=== PATIENT | female | born 1975 | race Asian ===

== ENCOUNTER 2024-01-27 14:38 | Outpatient (AMB) | payer OTHER, SELFPAY ==
--- NOTE | 2024-01-27 14:48 | A.OFFVIS_ITS ---
Vital Signs 01/27/24 14:49 Height 5 ft 3 in Weight 145 lb 1.027 oz BMI 25.7 BP 142/64 H Blood Pressure Location Rt brachial Position Sitting Pulse 104 H Pulse Source Pulse Oximeter Pulse Oximetry (%) 100 Oxygen Delivery Method Room Air Intake Visit Reasons: Intake Note: New pt presents today for consult, referred by physiatry Dr Zamora Denies having pain. 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 Accompanied by: and child Allergies No Known Allergies Allergy (Verified 01/27/24 14:52) Medication List - Last Reconciled 01/27/24 by Norman Nazario MD amlodipine 5 mg PO BID atorvastatin 10 mg PO DAILY blood sugar diagnostic (FreeStyle Lite Strips) As directed blood-glucose meter (FreeStyle Lite Meter kit) As directed cholecalciferol (vitamin D3) (Vitamin D3) 50 mcg PO DAILY dulaglutide (Trulicity) mg subcut ferrous sulfate 325 mg PO DAILY glipizide ER 5 mg PO BID lancets (FreeStyle Lancets) As directed losartan 100 mg PO DAILY magnesium oxide 400 mg PO DAILY metformin 500 mg PO BID HPI Comments Details: This is a 48-year-old female who presents for evaluation of ankylosing spondylitis. Over the last 3 years patient has noticed that when she walks her back is bent to the right and forward. She states that she was having some left thigh pain. She states that she has mild morning stiffness of her back lasting about 15 minutes. She does not have to do any exercises or take any medications to loosen it up. She generally does not take any medications for pain. She was referred to physical therapy which helped with her thigh pain. Today she denies any pain. She denies any history suggestive of uveitis or IBD. She is scheduled for a colonoscopy later this year. It is a routine screening colonoscopy. She is unaware of any family history of an autoimmune rheumatic disease. [facility] Medical History Radiculopathy, thoracic region Radiculopathy, lumbar region Diabetes Hypertension Surgical History Hx of section Family History Mother Diabetes Father No problems noted. Social History Alcohol intake: never Patient Tobacco Use Status: Never used Tobacco Female Reproductive History Menstrual Total pregnancies: 5 Ab spontaneous: 3 Review of Systems Musc Details: Abnormal spine posture Reports abnormal gait, Denies arthralgias, Denies joint swelling and Reports stiffness Neuro Reports abnormal gait Physical Exam Vital Signs: Last Vital Signs Pulse 104 H 01/27/24 14:49 BP 142/64 H 01/27/24 14:49 Pulse Ox 100 01/27/24 14:49 Oxygen Delivery Method Room Air 01/27/24 14:49 BMI result Body Mass Index 25.7 Const General: cooperative, healthy appearing and comfortable Nutritional Appearance: overweight Orientation/consciousness: patient oriented x3 Limitations: no limitations HEENT Head: Yes normocephalic and Yes atraumatic Mouth: moist mucous membranes Resp Effort & Inspection: normal respiratory effort and able to speak in complete sentences Auscultation: clear to auscultation bilaterally Cardio Rate: regular rate Rhythm: regular rhythm Skin General skin exam: no rashes or lesions noted Neuro General: patient oriented x3 Extrem Other: No active synovitis Nailfold capillaroscopy shows few parallel hemorrhages and normal range of motion of hands, fingers, wrists, elbows, shoulders Normal range of motion of neck Malleolus on exam Yamilex test 10-11 cm Negative straight leg raise test bilaterally Negative Fabere test bilaterally Results Reviewed Results Reviewed: Thoracic spine x-ray 11/2023? Findings/impression:? Alignment is within normal limits.? No fracture.? Mild degenerative changes with facet arthritis and endplate spurring throughout the thoracic spine.? Multilevel flowing syndesmophytes throughout the thoracic spine raising the possibility of ankylosing spondylitis Thoracic spine x-ray 09/2023? Impression:? No acute findings.? 14 degree levoscoliosis with the apex at L3.? Unchanged compared to 03/2011.? There degenerative disc disease at the L5-S1 level Assessment & Plan Assessment & Plan (1) Scoliosis: Code(s): M41.9 - Scoliosis, unspecified Category: Medical Qualifiers: Scoliosis type: idiopathic Spinal region: thoracolumbar Idiopathic scoliosis type: other Qualified Code(s): M41.25 - Other idiopathic scoliosis, thoracolumbar region Plan: This is a 48-year-old female who presents for evaluation of ankylosing spondylitis. Patient has known scoliosis. Recent thoracic spine x-ray showed bridging syndesmophytes suggestive of ankylosing spondylitis. Will order comprehensive serology to screen for underlying autoimmune rheumatic disease. Check repeat spinal x-rays and will add bilateral SI joint x-rays to evaluate for sacroiliitis. Patient states that she will be going to [place] and will be back late March or April. Follow-up in about 3 months to go over her results Plan I spent 47 minutes reviewing patient's chart, evaluating patient, ordering diagnostic workup, counseling patient and documenting in the chart Orders: Orders Complete Blood Count Auto Diff Today M06.9 - Rheumatoid arthritis, unspecified C Reactive Protein Today M06.9 - Rheumatoid arthritis, unspecified Immunofixation Pnl, Serum Today M06.9 - Rheumatoid arthritis, unspecified Rheumatoid Factor Today M06.9 - Rheumatoid arthritis, unspecified Cyclic Citrullinated Peptide Today M06.9 - Rheumatoid arthritis, unspecified HLA B27 Today M45.9 - Ankylosing spondylitis of unspecified sites in spine LIZBETH Reflex Titer and Pattern Today M25.50 - Pain in unspecified joint XR sacroiliac joint min 3V Today M25.50 - Pain in unspecified joint XR thoracic spine 3V Today M25.50 - Pain in unspecified joint Comprehensive Met. Panel Today M06.9 - Rheumatoid arthritis, unspecified Erythrocyte Sedimentation Rate Today M06.9 - Rheumatoid arthritis, unspecified Hepatitis A,B,C Profile Today Z11.59 - Encounter for screening for other viral diseases Protein Electrophoresis, Serum Today M06.9 - Rheumatoid arthritis, unspecified XR lumbar spine 4V min Today M25.50 - Pain in unspecified joint Coding Level of Care Code New Pt Level 4 (67282) Diagnoses Other idiopathic scoliosis, thoracolumbar region M41.25 Scoliosis type: idiopathic Spinal region: thoracolumbar Idiopathic scoliosis type: other
[2024-01-27 14:49] VITALS: BP 142/64; PULSE 104; O2SAT 100; BMI 25.7
== END 2024-01-27 15:21 | disposition home or self-care (01) ==
PROVIDERS: PCP Internal Medicine; Visit Provider Student in an Organized Health Care Education/Training Program
DX: M41.25 Other idiopathic scoliosis, thoracolumbar region (principal)
CPT/HCPCS: 99204

== ENCOUNTER → 2024-01-27 14:38 | Outpatient (BNVA) | payer OTHER, SELFPAY | PROVIDERS: PCP Internal Medicine; Visit Provider Student in an Organized Health Care Education/Training Program | DX: M41.25 Other idiopathic scoliosis, thoracolumbar region (principal) | CPT/HCPCS: 99202 ==

== ENCOUNTER → 2024-05-27 09:50 | Outpatient (BNVA) | payer OTHER, SELFPAY | PROVIDERS: PCP Internal Medicine; Visit Provider Student in an Organized Health Care Education/Training Program ==

== ENCOUNTER 2024-06-22 08:14 | Outpatient (AMB) | payer OTHER, SELFPAY ==
--- NOTE | 2024-06-22 08:16 | MHC.OFFVIS ---
Vital Signs 06/22/24 08:20 Height 5 ft 3 in Weight 148 lb 12.992 oz BMI 26.4 BP 124/74 Blood Pressure Location Rt brachial Position Sitting Pulse 78 Pulse Source Pulse Oximeter Pulse Oximetry (%) 95 Oxygen Delivery Method Room Air Intake Visit Reasons: as Intake Note: Patient presents for . Allergies No Known Allergies Allergy (Verified 06/22/24 08:19) Medication List - Last Reconciled 06/22/24 by Norman Nazario MD amlodipine 5 mg PO BID atorvastatin 10 mg PO DAILY blood sugar diagnostic (FreeStyle Lite Strips) As directed blood-glucose meter (FreeStyle Lite Meter kit) As directed cholecalciferol (vitamin D3) (Vitamin D3) 50 mcg PO DAILY dulaglutide (Trulicity) mg subcut ferrous sulfate 325 mg PO DAILY glipizide ER 5 mg PO BID lancets (FreeStyle Lancets) As directed losartan 100 mg PO DAILY magnesium oxide 400 mg PO DAILY metformin 500 mg PO BID HPI Comments Details: Patient returns for follow-up after completion of her diagnostic workup. She continues to feel about the same. She only has minimal morning stiffness. She denies any swollen joints. She is able to do her housework normally. Does not take anything for pain. Initial history: This is a 48-year-old female who presents for evaluation of ankylosing spondylitis. Over the last 3 years patient has noticed that when she walks her back is bent to the right and forward. She states that she was having some left thigh pain. She states that she has mild morning stiffness of her back lasting about 15 minutes. She does not have to do any exercises or take any medications to loosen it up. She generally does not take any medications for pain. She was referred to physical therapy which helped with her thigh pain. Today she denies any pain. She denies any history suggestive of uveitis or IBD. She is scheduled for a colonoscopy later this year. It is a routine screening colonoscopy. She is unaware of any family history of an autoimmune rheumatic disease. [facility] Medical History Radiculopathy, thoracic region Radiculopathy, lumbar region Diabetes Hypertension Surgical History Hx of section Family History Mother Diabetes Father No problems noted. Social History Alcohol intake: never Patient Tobacco Use Status: Never used Tobacco Female Reproductive History Menstrual Total pregnancies: 5 Ab spontaneous: 3 Review of Systems Musc Details: Abnormal spine posture Reports abnormal gait, Denies arthralgias, Denies joint swelling and Reports stiffness Neuro Reports abnormal gait Physical Exam Vital Signs: BMI result Body Mass Index 26.4 Const General: cooperative, healthy appearing and comfortable Nutritional Appearance: overweight Orientation/consciousness: patient oriented x3 Limitations: no limitations HEENT Head: Yes normocephalic and Yes atraumatic Mouth: moist mucous membranes Resp Effort & Inspection: normal respiratory effort and able to speak in complete sentences Auscultation: clear to auscultation bilaterally Cardio Rate: regular rate Rhythm: regular rhythm Skin General skin exam: no rashes or lesions noted Neuro General: patient oriented x3 Extrem Other: No active synovitis Nailfold capillaroscopy shows few parallel hemorrhages and normal range of motion of hands, fingers, wrists, elbows, shoulders Normal range of motion of neck Scoliotic on exam Yamilex test 10-10.5 cm Negative straight leg raise test bilaterally Negative Edmond test bilaterally Results Reviewed Results Reviewed: Thoracic spine x-ray 11/2023? Findings/impression:? Alignment is within normal limits.? No fracture.? Mild degenerative changes with facet arthritis and endplate spurring throughout the thoracic spine.? Multilevel flowing syndesmophytes throughout the thoracic spine raising the possibility of ankylosing spondylitis Thoracic spine x-ray 09/2023? Impression:? No acute findings.? 14 degree levoscoliosis with the apex at L3.? Unchanged compared to 03/2011.? There degenerative disc disease at the L5-S1 level CRP 0.85 (<0.5) ESR 31 HLA B27 positive Labs otherwise unremarkable Assessment & Plan Assessment & Plan (1) Ankylosing spondylitis: Code(s): M45.9 - Ankylosing spondylitis of unspecified sites in spine Category: Medical Qualifiers: Ankylosing spondylitis location: lumbar region Qualified Code(s): M45.6 - Ankylosing spondylitis lumbar region Plan: This is a 48-year-old female who presents for evaluation of ankylosing spondylitis. Patient has known scoliosis. Recent thoracic spine x-ray showed bridging syndesmophytes suggestive of ankylosing spondylitis. On exam patient has significantly limited Yamilex test. She does not have any swollen joints on exam. Labs however show elevated ESR and CRP. Positive HLA B27. There remains a strong suspicion for ankylosing spondylitis. At this time I would like to confirm the diagnosis. I will order MR SI joints as well as an L-spine. Follow-up after MRIs are completed Plan I spent 25 minutes reviewing patient's chart, evaluating patient, ordering diagnostic workup, counseling patient and documenting in the chart Orders: Orders MR lumbar spine wo con Today G89.29 - Other chronic pain, M54.50 - Low back pain, unspecified MR sacroiliac joint CARRILLO wo con Today G89.29 - Other chronic pain, M54.50 - Low back pain, unspecified Coding Level of Care Code Est Pt Level 4 (19036) Diagnoses Ankylosing spondylitis of lumbar region M45.6 Ankylosing spondylitis location: lumbar region
[2024-06-22 08:20] VITALS: BP 124/74; PULSE 78; O2SAT 95; BMI 26.4
== END 2024-06-22 08:47 | disposition home or self-care (01) ==
PROVIDERS: PCP Internal Medicine; Visit Provider Student in an Organized Health Care Education/Training Program
DX: M45.6 Ankylosing spondylitis lumbar region (principal)
CPT/HCPCS: 99214

== ENCOUNTER → 2024-06-22 08:14 | Outpatient (BNVA) | payer OTHER, SELFPAY | PROVIDERS: PCP Internal Medicine; Visit Provider Student in an Organized Health Care Education/Training Program | DX: M45.6 Ankylosing spondylitis lumbar region (principal) | CPT/HCPCS: 99212 ==

== ENCOUNTER 2024-08-08 08:57 | Outpatient (REF) | payer OTHER, SELFPAY | END 2024-08-08 08:58 | disposition home or self-care (01) | LOC: HO.MRI 08:57 | PROVIDERS: PCP Internal Medicine; Visit Provider Student in an Organized Health Care Education/Training Program | DX: M54.50 Low back pain, unspecified (principal); G89.29 Other chronic pain | CPT/HCPCS: 72148; 72195 ==

== ENCOUNTER 2024-10-18 09:03 | Outpatient (AMB) | payer OTHER, SELFPAY ==
[2024-10-18 09:05] VITALS: BP 122/72; PULSE 80; O2SAT 100; BMI 26.0
--- NOTE | 2024-10-18 09:05 | MHC.OFFVIS ---
Vital Signs 10/18/24 09:05 Height 5 ft 3 in Weight 146 lb 13.246 oz BMI 26.0 BP 122/72 Blood Pressure Location Lt brachial Position Sitting Pulse 80 Pulse Source Pulse Oximeter Pulse Oximetry (%) 100 Oxygen Delivery Method Room Air Intake Visit Reasons: discuss MRI results Intake Note: Patient last seen by Doctor Norman Nazario on 06/22/24. Patient presents to discuss MRI results. Allergies No Known Allergies Allergy (Verified 10/18/24 09:07) Medication List - Last Reconciled 10/18/24 by Sonya Tafoya MD amlodipine 5 mg PO BID atorvastatin 10 mg PO DAILY blood sugar diagnostic (FreeStyle Lite Strips) As directed blood-glucose meter (FreeStyle Lite Meter kit) As directed cholecalciferol (vitamin D3) (Vitamin D3) 50 mcg PO DAILY dulaglutide (Trulicity) mg subcut ferrous sulfate 325 mg PO DAILY glipizide ER 5 mg PO BID lancets (FreeStyle Lancets) As directed losartan 100 mg PO DAILY magnesium oxide 400 mg PO DAILY metformin 500 mg PO BID HPI Comments Details: Patient is a 49-year-old female with hypertension and diabetes who presents today for follow up Interval History: Last seen 06/22/[address] Nazario. At that time patient did not report inflammatory type back pain. There was elevated ESR/CRP and positive HLA B27 which was suggestive of ankylosing spondylitis. Sent for MRI of L spine and pelvis. Today, Continues to deny hx of dactylitis, inflammatory type back pain with prolonged AM stiffness Rheumatologic History: Patient initially presented 01/27/2024 on a background of lumbar x-rays showing flowing syndesmophytes with concern for ankylosing spondylitis. Exam at that time did not reveal any history of dactylitis, uveitis or peripheral arthritis Labs indicated elevated ESR and CRP as well as positive HLA b27 There was no evidence of active sacroilitis on MRI of the pelvis but there was asymmetric SI joint narrowing and syndesmophytes. Patient met incomplete ASAS criteria for ankylosing spondylitis based on HLA B27 positive and elevated ESR/CRP. Started on NSAIDs for incomplete/early amkylosing spondylitis to prevent further syndesmophyte formation Current Rheumatology Medication(s): [facility] Medical History (Updated 10/18/24 @ 10:03 by Sonya Tafoya MD) [facility] (current) use of non-steroidal anti-inflammatories (nsaid) Radiculopathy, thoracic region Radiculopathy, lumbar region Diabetes Hypertension Surgical History Hx of section Family History Mother Diabetes Father No problems noted. 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 Well appearing and in no apparent painful distress HEENT Conjunctiva and sclera clear. ?Pupils equal round and reactive to light. ?No lymphadenopathy. ? CHEST/RESPIRATORY SYSTEM Normal respiratory effort and able to speak in complete sentences. ?Clear to auscultation bilaterally. ?No crackles, rales, rhonchi, wheezes heard. CARDIAC SYSTEM Regular rate and rhythm. ?S1 and S2 heard no murmurs. 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 No deformities noted. ?No synovitis noted to the MCPs, PIPs or DIPs. ?No tenderness to palpation of these joints. Bilateral 4th and 5th digits shorter than the remaining digits Wrists: ?Full range of motion at the wrists without pain. ?No tenderness to palpation or synovitis noted to the wrists. Elbows: Full range of motion without pain. No tenderness, weakness, swelling, increased warmth or erythema. Shoulders: Full range of motion without pain. No tenderness, weakness, swelling, increased warmth or erythema. Hips: Full range of motion without pain. Hip bursa: No tenderness to palpation Knees: ?Full range of motion. ?No tenderness, swelling, increased warmth or erythema.?No effusion or crepitations Ankles: Full range of motion. ?No tenderness, swelling, increased warmth or erythema.? Feet: ?Negative squeeze test. ?No tenderness to palpation or swelling of the MTPs. Tender points:?No tenderness to palpation of the bilateral trapezius, supraspinatus, greater trochanters, anterior costochondral junctions, bilateral gluteal areas, bilateral suboccipital muscle insertions Back: Modified Schobers test with degree of movement <5cm SKIN Skin intact without rashes. Results Reviewed Results Reviewed: Labs 04/2024 Hb 11.0 Hct 34.6 WBC 9.0 Plt 209 Na 139 K 4.5 Cl 107 CO2 25 BUN 13 Cr 0.85 HLA B27 positive CRP 0.85 ESR 31 Pelvic MRI 07/2024 FINDINGS: Urinary bladder is well filled with urine. Uterus is unremarkable. Bilateral ovaries are normal in size. Pelvic fat plane is clean. No pelvic ascites is seen. No abnormally enlarged iliac or inguinal lymph nodes are found. Sacrum and coccyx are intact with normal signal. Bilateral sacroiliac joints are intact. There is asymmetric narrowing of superior left sacroiliac joint space. No abnormal joint effusion or erosion could be seen. At S1-S2 junction, bilateral Tarlov cysts are present, impinging the sacral nerve roots. The pelvis and bilateral hips are intact. Bilateral femoral heads and necks show normal signal without focal lesion. No abnormal joint effusion can be seen. The visualized bony pelvis show normal signal. Bilateral sacroiliac joints also appear unremarkable. IMPRESSION: 1. Asymmetric narrowing of superior left sacroiliac joint space. No abnormal joint effusion or erosion could be seen. 2. 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 Lumbar Spine 07/2024 FINDINGS: There are 5 nonrib-bearing lumbar-type vertebrae. No listhesis. No acute bone marrow abnormality. The vertebral body heights are preserved. There are bony protrusions involving many of the vertebral bodies, more conspicuous along the anterior left aspect of L4, right lateral aspect of L4-5, anterior left and right lateral aspects of L5-S1. Multilevel disc desiccation without significant disc height loss. The visualized spinal cord is normal in caliber. No abnormal cord signal. The conus medullaris terminates at L1-2. T12-L1: No significant spinal canal or neural foraminal narrowing. L1-2: No significant spinal canal or neural foraminal narrowing. L2-3: Right facet arthrosis. No significant spinal canal or neural foraminal narrowing. L3-4: Bilateral facet arthrosis. No significant spinal canal or neural foraminal narrowing. L4-5: Bilateral facet arthrosis. No significant spinal canal or neural foraminal narrowing. L5-S1: Bilateral facet arthrosis. No significant spinal canal or neural foraminal narrowing. There is narrowing of the superior aspect of the left greater than right sacroiliac joints. The paravertebral soft tissues are unremarkable. IMPRESSION: -Multilevel thickening/bony protrusions along the vertebral bodies are most suggestive of syndesmophytes. Additionally, there is narrowing of the superior aspect of the left greater than right sacroiliac joints. Constellation of findings can be seen with ankylosing spondylitis in the appropriate clinical setting. -Multilevel facet arthrosis. No significant spinal canal or neural foraminal narrowing. Assessment & Plan Assessment & Plan (1) Ankylosing spondylitis: Code(s): M45.9 - Ankylosing spondylitis of unspecified sites in spine Category: Medical Qualifiers: Ankylosing spondylitis location: lumbar region Qualified Code(s): M45.6 - Ankylosing spondylitis lumbar region Plan: #Ankylosing spondylitis MRI did not show any active sacroilitis, however given the syndesmophytes, positive HLA B27 and elevated inflammatory markers she may have incomplete/pre ankylosing spondylitis Given her history of scoliosis and her already significantly limited ROM of the lower back, treating with NSAIDs is warranted for now. Will need to follow labs and inflammtory markers since she does not currently have significant arthritis Plan - Celebrex 100mg bid. Plan to continue this for at least 1 year. Can increase to 200mg bid if needed - RTC 4 months - CBC, CMP, ESR, CRP prior to visit Walt ZAPATA, Donna DA, Amie M, Segundo J. Benefits and risks of ankylosing spondylitis treatment with nonsteroidal antiinflammatory drugs. Arthritis Rheum. 2008 Apr;58(4):929-38. doi: 10.1002/art.08442. PMID: [id number]. (2) Scoliosis: Code(s): M41.9 - Scoliosis, unspecified Category: Medical Qualifiers: Idiopathic scoliosis type: other Scoliosis type: idiopathic Spinal region: thoracolumbar Qualified Code(s): M41.25 - Other idiopathic scoliosis, thoracolumbar region Plan: #Levoscoliosis Levoscoliosis noted on imaging Patient requesting a brace Same order and paper given to patient and They are to call their insurance to find a medical supplies store Plan - Posture back brace for scoliois. 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 (nsaid): Code(s): Z79.1 - [facility] (current) use of non-steroidal anti-inflammatories (NSAID) Category: Medical Plan: #Long-term Use of NSAIDs Discussed with patient the benefits and risk of NSAIDs for managing the rheumatic condition Benefits include: - Reduced the pain, improved mobility, and increased participation in activities Risks include: - GI upset, potential also worsening or formation (especially in patients > 65 years old) Recommended using proton pump inhibitors (PPIs) for the duration of NSAID use to reduce the risk of gastric ulcers Plan I spent 30 minutes reviewing the record and labs, taking a history, examining the patient, discussing the treatment plan and documenting in the medical record Medications: New celecoxib 100 mg PO BID 90 caps 1RF M45.6 - Ankylosing spondylitis lumbar region back brace Posture Back Brace for Scoliosis 1 ea 0RF M41.25 - Other idiopathic scoliosis, thoracolumbar region celecoxib (Celebrex) 200 mg PO BID 90 caps 1RF M45.6 - Ankylosing spondylitis lumbar region Coding Level of Care Code Est Pt Level 4 (23312) Complex EM visit Add On G2211 Diagnoses Ankylosing spondylitis of lumbar region M45.6 Ankylosing spondylitis location: lumbar region Other idiopathic scoliosis, thoracolumbar region M41.25 Idiopathic scoliosis type: other Scoliosis type: idiopathic Spinal region: thoracolumbar [facility] (current) use of non-steroidal anti-inflammatories (nsaid) Z79.1
== END 2024-10-18 09:40 | disposition home or self-care (01) ==
LOC: HO.RHE 09:03
PROVIDERS: PCP Internal Medicine; Visit Provider Student in an Organized Health Care Education/Training Program
DX: M45.6 Ankylosing spondylitis lumbar region (principal); M41.25 Other idiopathic scoliosis, thoracolumbar region; Z79.1 Long term (current) use of non-steroidal anti-inflammatories (NSAID)
CPT/HCPCS: 99214; G2211

== ENCOUNTER → 2024-10-18 09:03 | Outpatient (BNVA) | payer OTHER, SELFPAY | PROVIDERS: PCP Internal Medicine; Visit Provider Student in an Organized Health Care Education/Training Program | DX: M54.6 Pain in thoracic spine (principal); M41.25 Other idiopathic scoliosis, thoracolumbar region; Z71.2 Person consulting for explanation of examination or test findings; Z79.1 Long term (current) use of non-steroidal anti-inflammatories (NSAID) | CPT/HCPCS: 99212 ==

== ENCOUNTER 2025-01-27 12:01 | Outpatient (REF) | payer OTHER, SELFPAY ==
[2025-01-27 14:03] LABS: MANUAL DIFF FLAG NO
[2025-01-27 14:15] LABS: Basophils Absolute Auto 0.1 X10*3/uL (0.0-0.2); Basophils Percent Auto 1.1 % (0-2); Eosinophils Absolute Auto 0.2 X10*3/uL (0.0-0.4); Eosinophils Percent Auto 3.3 % (0-4); Hematocrit 36.5 % (37.0-47.0); Hemoglobin 11.5 g/dl (12.0-16.0); Imm Gran Abs Auto 0.03 X10*3/uL (0.00-0.03); Imm Gran Pct Auto 0.4 % (0.0-0.4); Lymphocytes Absolute Auto 2.4 X10*3/uL (1.2-4.9); Mean Corpuscular HGB Conc 31.5 g/dl (31.0-35.0); Mean Corpuscular Hemoglobin 24.5 pg (27.0-33.0); Mean Corpuscular Volume 77.7 fL (80.0-98.0); Mean Platelet Volume 11.5 fL (9.4-12.3); Monocytes Absolute Auto 0.5 X10*3/uL (0.1-1.2); Monocytes Percent Auto 6.1 % (2-11); Neutrophils Absolute Auto 4.2 x10*3/uL (2.0-8.3); Neutrophils Percent Auto 57.1 % (45-73); Platelet Count 228 X10*3/uL (160-400); White Blood Count 7.4 X10*3/uL (4.8-10.8)
[2025-01-27 14:34] LABS: Alanine Aminotransferase 26 U/L (0-31); Albumin Level 4.1 g/dL (3.5-5.0); Alkaline Phosphatase 87 U/L (39-117); Anion Gap 11 (12-20); Aspartate Amino Transferase 26 U/L (5-31); Bilirubin Total 0.4 mg/dL (0.0-1.0); Blood Urea Nitrogen 11 mg/dL (9-16); C Reactive Protein 0.68 mg/dL (< or = 0.50); Calcium 9.7 mg/dL (8.4-10.2); Carbon Dioxide 26 mmol/L (22-29); Chloride 109 mmol/L (96-108); Estimated Glomerular Filt Rate > 60; Glucose Random 100 mg/dL (60-115); Potassium 4.7 mmol/L (3.3-5.1); Sodium 141 mmol/L (135-145); Total Protein 7.3 g/dL (6.5-8.0)
[2025-01-27 14:51] LABS: Erythrocyte Sedimentation Rate 20 MM/HR (0-20)
== END 2025-01-27 12:02 | disposition home or self-care (01) ==
LOC: HO.10HDL 12:01
PROVIDERS: Visit Provider Student in an Organized Health Care Education/Training Program
DX: M45.6 Ankylosing spondylitis lumbar region (principal)
CPT/HCPCS: 36415; 80053; 85025; 85652; 86140

== ENCOUNTER 2025-02-02 13:35 | Outpatient (AMB) | payer OTHER, SELFPAY ==
--- NOTE | 2025-02-02 13:41 | A.OFFVIS_ITS ---
Vital Signs 02/02/25 13:44 Height 5 ft 3 in Weight 146 lb 6.191 oz BMI 25.9 BP 162/80 H Blood Pressure Location Lt brachial Position Sitting Pulse 86 Pulse Source Pulse Oximeter Pulse Oximetry (%) 98 Oxygen Delivery Method Room Air Intake Visit Reasons: Intake Note: Patient presents for follow up. Allergies No Known Allergies Allergy (Verified 02/02/25 13:44) Medication List - Last Reconciled 02/02/25 by Sonya Tafoya MD amlodipine 5 mg PO BID atorvastatin 10 mg PO DAILY back brace Posture Back Brace for Scoliosis blood sugar diagnostic (FreeStyle Lite Strips) As directed blood-glucose meter (FreeStyle Lite Meter kit) As directed celecoxib 100 mg PO BID cholecalciferol (vitamin D3) (Vitamin D3) 50 mcg PO DAILY dulaglutide (Trulicity) mg subcut ferrous sulfate 325 mg PO DAILY glipizide ER 5 mg PO BID lancets (FreeStyle Lancets) As directed losartan 100 mg PO DAILY magnesium oxide 400 mg PO DAILY metformin 500 mg PO BID HPI Comments Details: Patient is a 49-year-old female with hypertension, diabetes and ankylosing spondylitis who presents today for follow up Interval History: Last seen 10/18/2024 with me. At that time she was following up. MRI did not show any evidence of active sacroiliits but since she had a +ve HLA B27, elevated inflammatory markers and syndesmophytes she was started on celebrex for anklyosing spondyloarthritis Today, Patient has not been taking celebrex as prescribed Only taking it once a day out of concern of the side effects Has noticed that the celebrex helps with the pain but continues to complain of back pain Rheumatologic History: Patient initially presented 01/27/2024 on a background of lumbar x-rays showing flowing syndesmophytes with concern for ankylosing spondylitis. Exam at that time did not reveal any history of dactylitis, uveitis or peripheral arthritis Labs indicated elevated ESR and CRP as well as positive HLA b27 There was no evidence of active sacroilitis on MRI of the pelvis but there was asymmetric SI joint narrowing and syndesmophytes. Patient met incomplete ASAS criteria for ankylosing spondylitis based on HLA B27 positive and elevated ESR/CRP. 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 Social History Alcohol intake: never Patient Tobacco Use Status: Never used Tobacco Review of Systems Const Details: Review of Systems Constitutional: Denies fever, chills, weight loss ENT: Denies vision changes, eye pain or eye redness, dental caries, dry mouth GI: Denies nausea, vomiting, diarrhea, abdominal pain, change in BM Pulm: Denies SOB, SANDOVAL, hemoptysis, wheezing Cards: Denies chest pain, palpitations Skin: Denies Raynaud's, rash, nail changes, photosensitivity, CELL PLASTERER: Denies headaches, weakness, paresthesias, recurrent falls MSK: as per HPI All other systems reviewed and are unremarkable except noted above Physical Exam Vital signs reviewed Physical Examination CONSTITUITIONAL Patient alert and cooperative. Well appearing and in no apparent painful distress HEENT Conjunctiva and sclera clear. ?Pupils equal round and reactive to light. ?No l ymphadenopathy. ? CHEST/RESPIRATORY SYSTEM Normal respiratory effort and able to speak in complete sentences. ?Clear to auscultation bilaterally. ?No crackles, rales, rhonchi, wheezes heard. CARDIAC SYSTEM Regular rate and rhythm. ?S1 and S2 heard no murmurs. 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 No deformities noted. ?No synovitis noted to the MCPs, PIPs or DIPs. ?No tenderness to palpation of these joints. Bilateral 4th and 5th digits shorter than the remaining digits Wrists: ?Full range of motion at the wrists without pain. ?No tenderness to palpation or synovitis noted to the wrists. Elbows: Full range of motion without pain. No tenderness, weakness, swelling, i ncreased warmth or erythema. Shoulders: Full range of motion without pain. No tenderness, weakness, swelling, increased warmth or erythema. Hips: Full range of motion without pain. Hip bursa: No tenderness to palpation Knees: ?Full range of motion. ?No tenderness, swelling, increased warmth or erythema.?No effusion or crepitations Ankles: Full range of motion. ?No tenderness, swelling, increased warmth or erythema.? Feet: ?Negative squeeze test. ?No tenderness to palpation or swelling of the MTPs. Tender points:?No tenderness to palpation of the bilateral trapezius, supraspinatus, greater trochanters, anterior costochondral junctions, bilateral gluteal areas, bilateral suboccipital muscle insertions Back: Modified Schobers test with degree of movement <5cm SKIN Skin intact without rashes. Results Reviewed Results Reviewed: Laboratory Tests 01/27/25 12:05 WBC 7.4 RBC 4.70 Hgb 11.5 L Hct 36.5 L Plt Count 228 ESR 20 Sodium 141 Potassium 4.7 Chloride 109 H Carbon Dioxide 26 BUN 11 Creatinine 0.74 AST 26 ALT 26 Alkaline Phosphatase 87 C-Reactive Protein 0.68 H Assessment & Plan Assessment & Plan (1) Ankylosing spondylitis: Code(s): M45.9 - Ankylosing spondylitis of unspecified sites in spine Category: Medical Qualifiers: Ankylosing spondylitis location: lumbar region Qualified Code(s): M45.6 - Ankylosing spondylitis lumbar region Plan: #Ankylosing spondylitis Patient is a 49-year-old female with non radiographic ankylosing spondylitis. MRI did not show any active sacroilitis, however given the syndesmophytes, positive HLA B27 and elevated inflammatory markers she may have incomplete/pre ankylosing spondylitis Given her history of scoliosis and her already significantly limited ROM of the lower back, treating with NSAIDs is warranted for now. Will need to follow labs and inflammtory markers since she does not currently have significant arthritis Plan - Celebrex 100mg bid. Plan to continue this for at least 1 year. Can increase to 200mg bid if needed - RTC 4 months - CBC, CMP, ESR, CRP prior to visit Walt ZAPATA, Donna DA, Amie M, Segundo J. Benefits and risks of ankylosing spondylitis treatment with nonsteroidal antiinflammatory drugs. Arthritis Rheum. 2008 Apr;58(4):929-38. doi: 10.1002/art.78821. PMID: [id number]. (2) Scoliosis: Code(s): M41.9 - Scoliosis, unspecified Category: Medical Qualifiers: Scoliosis type: idiopathic Idiopathic scoliosis type: other Spinal region: thoracolumbar Qualified Code(s): M41.25 - Other idiopathic scoliosis, thoracolumbar region Plan: #Levoscoliosis Levoscoliosis noted on imaging Patient requesting a brace Same order and paper given to patient and They are to call their insurance to find a medical supplies store Plan - Posture back brace for scoliois. 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 (NSAID) Category: Medical Plan: #Long-term Use of NSAIDs Discussed with patient the benefits and risk of NSAIDs for managing the rheumatic condition Benefits include: - Reduced the pain, improved mobility, and increased participation in activities Risks include: - GI upset, potential also worsening or formation (especially in patients > 65 years old) Recommended using proton pump inhibitors (PPIs) for the duration of NSAID use to reduce the risk of gastric ulcers Plan I spent 30 minutes reviewing the record and labs, taking a history, examining the patient, discussing the treatment plan and documenting in the medical record Orders: Orders C Reactive Protein 4 Months D64.9 - Anemia, unspecified, M45.6 - Ankylosing spondylitis lumbar region Erythrocyte Sedimentation Rate 4 Months D64.9 - Anemia, unspecified, M45.6 - Ankylosing spondylitis lumbar region Complete Blood Count Auto Diff 4 Months M45.6 - Ankylosing spondylitis lumbar region Comprehensive Met. 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
[2025-02-02 13:44] VITALS: BP 162/80; PULSE 86; O2SAT 98; BMI 25.9
--- OUTSIDE RECORDS SUMMARY | 2025-02-02 14:55 | XMS_ITS | Clinical Summary ---
Author Organization [facility] Address [address] [place] [address] Phone Care Team Providers Care Residential Care Officer Name Role Phone Latoya Wang MD Primary Care Provider [phone] Allergies No known active allergies Medications blood sugar diagnostic (FreeStyle Lite Strips) test strip USE 1 TEST STRIP DAILY TO CHECK BLOOD SUGAR 02/19/20 24 Active blood-glucose meter kit 1 Kit by Does not apply route daily. 11/03/19 24 Active FREESTYLE LANCETS MISC 1 Piece by Does not apply route daily. 11/03/19 24 Active FREESTYLE LANCETS MISC 1 Stick by Does not apply route daily. 02/20/20 23 Active atorvastatin (LIPITOR) 10 mg tablet TAKE 1 TABLET BY MOUTH EVERY DAY 90 tablet 1 10/06/19 25 Active hydrocortisone 2.5 % cream Apply topically 2 (two) times a day if needed for irritation or rash. 30 g 5 10/12/19 25 026 Active polyethylene glycol (MIRALAX) 17 gram packet Take 17 g by mouth 1 (one) time each day. 570 g 3 10/12/19 25 Active ferrous sulfate 325 mg (65 mg elemental iron) tablet Take 1 tablet (325 mg total) by mouth 1 (one) time each day. 90 tablet 3 10/14/19 25 Active glipiZIDE (GLUCOTROL XL) 5 mg 24 hr tablet TAKE 1 TABLET BY MOUTH TWICE A DAY 180 tablet 1 10/29/19 25 Active losartan (COZAAR) 100 mg tablet TAKE 1 TABLET BY MOUTH EVERY DAY 90 tablet 1 11/08/19 25 Active magnesium oxide (MAG-OX) 400 mg (241.3 elemental magnesium) tabletIndication s:Essential (primary) hypertension,Typ e 2 diabetes mellitus with unspecified complications ([facility] V24, [facility] V28) Take 1 tablet (400 mg total) by mouth at bedtime. 30 tablet 5 11/22/19 25 Active dulaglutide (Trulicity) 3 mg/0.5 mL pen injector injection Inject 0.5 mL (3 mg total) under the skin 1 (one) time per week. 2 mL 5 12/16/19 25 Active amLODIPine (NORVASC) 5 mg tabletIndication s:Essential (primary) hypertension,Typ e 2 diabetes mellitus with unspecified complications ([facility] V24, [facility] V28) TAKE 1 TABLET BY MOUTH TWICE A DAY 180 tablet 1 12/23/19 25 Active metFORMIN (GLUCOPHAGE) 500 mg tablet TAKE 1 TABLET BY MOUTH TWICE A DAY WITH MEALS 180 tablet 1 01/05/20 25 Active Vitamin D3 50 mcg (2,000 unit) tablet TAKE 1 TABLET BY MOUTH EVERY DAY 90 tablet 1 01/08/20 25 Active FreeStyle Lancets 28 gauge lancets TEST ONCE DAILY. 100 each 3 01/26/20 25 Active cholecalciferol (VITAMIN D-3) 50 mcg (2,000 unit) tablet Take 1 tablet (2,000 Units total) by mouth 1 (one) time each day. 01/02/20 24 025 Discontinued metFORMIN (GLUCOPHAGE) 500 mg tablet Take 1 tablet (500 mg total) by mouth 2 (two) times a day with meals. 08/24/20 23 025 Discontinued Active Problems Problem Noted Date Diagnosed Date Ankylosing spondylitis ([facility] V24, [facility] V28 ) 10/12/2024 HLA B27 (HLA B27 positive) 10/12/2024 Kyphosis 12/12/2020 Leg length discrepancy 12/12/2020 Hypertension 04/18/2020 Type 2 diabetes mellitus wit h complication, without long-term current use of insulin ([facility] V24, [facility] V28) 04/18/2020 Encounters Date Type Department Care Team Description 12/09/2024 8:28 AM EDT - 12/09/2024 11:59 PM EDT [facility] at [address] [address] Encounter for screening mammogram for breast cancer Discharge Disposition: Home or Self Care from Last 3 Months Immunizations Name Administration Dates Next Due Influenza, Unspecified 10/10/2021 Surgical History Surgery Date Site/Laterality Comments SECTION PROCEDURE: HISTORICAL DELIVERY; COMMENT: times 2 Medical History Medical History Date Comments Diabetes mellitus type 2, uncomplicated ([facility] V24, [facility] V28) 04/18/2020 DX:Diabetes mellitus type 2, uncomplicated ([facility]) Hypertension 04/18/2020 DX:Hypertension Family History Medical History Relation Name Comments Heart attack Father Hypertension Father Diabetes Mother Hypertension Mother Breast cancer Sister x5 Diabetes Sister x5 Hypertension Sister x5 Relation Name Status Comments Brother x5 Father Maternal Grandfather Maternal Grandmother Mother Alive Paternal Grandfather Paternal Grandmother Sister x5 Social History Tobacco Use Types Packs/Day Years Used Date Smoking Tobacco: Never Smokeless Tobacco: Never Tobacco Cessation:Counseling Given: Not Answered Alcohol Use Standard Drinks/Week Comments No 0 (1 standard drink = 0.6 oz pur e alcohol) Interpersonal Safety Answer Date Record ed Physical Abuse 08/31/2024 Verbal Abuse 08/31/2024 Comments No Sex and Gender Information Value Date Recorded Sex Assigned at Female 08/24/2024 12:36 PM EST Legal Sex Female 5:49 AM EST Gender Identity Female 08/24/2024 12:36 PM EST Sexual Orientation Straight 08/24/2024 12 :36 PM EST Obstetrics History Para Term AB IAB SAB Ectopic Multiple Livin g Live Births 2 Last Filed Vital Signs Vital Sign Reading Time Taken Comments Blood Pressure 138/72 10/12/2024 1:38 PM EST Pulse 88 10/12/2024 1:38 PM EST Temperature 36.4 ??C (97.5 ??F) 10/12/2024 1:38 PM ES T Respiratory Rate 16 08/31/2024 8:51 AM EST Oxygen Saturation 99% 10/12/2024 1:38 PM EST Inhaled Oxygen Concentration - - Weight 67.1 kg (148 lb) 12/09/2024 8:34 AM EDT Height 160 cm (5' 3 ) 12/09/2024 8:34 AM EDT Body Mass Index 26.22 12/09/2024 8:34 AM EDT Plan of Treatment Health Maintenance Due Date Last Done Comments Diabetes: Annual Foot Exam 1986 Diabetes: Annual Retina Eye Exam 1986 Hepatitis B Vaccines (1 of 3 - 19+ 3-dose series) 1995 Pneumococcal Vaccine: Pediatrics (0 to 5 Years) and At-Risk Patients (6 to 64 Years) (2 of 2 - PCV) 09/17/2013 09/17/2012 DTaP,Tdap,and Td Vaccines (2 - Td or Tdap) 08/12/2022 08/12/2012 Depression Screening 09/01/2022 HIV Screening 09/01/2022 Hepatitis C Screening 09/01/2022 Social Influencers of Health Screening 09/01/2022 COVID-19 Vaccine ( season) 2024 Diabetes: Blood Sugar Control Test (HGBA1C) 04/12/2025 10/13/2024, 11/13/2023 Influenza Vaccine (Season Ended) 2025 10/10/2021, 08/18/2014, 10/05/2013, Additional history exists Diabetes: Annual Urine Albumin-Creatinine Ratio (uACR) 10/13/2025 10/13/2024, 12/12/2020 Diabetes: Annual GFR (Glomerular Filtration Rate) 10/13/2025 10/13/2024, 11/13/2023 Hypertension/CHF/CAD Annual BMP Blood Test 10/13/2025 10/13/2024, 11/13/2023 Breast Cancer Screening 12/09/2026 12/09/2024, 12/07 Cervical Cancer Screening: HPV 11/13/2028 11/13/2023 Cholesterol Screening (Lipid Panel) 10/13/2029 10/13/2024, 11/13/2023 Colorectal Cancer Screening: Colonoscopy 08/31/2034 08/31/2024 HIB Vaccines Aged Out No longer eligi ble based on patient's age to complete this topic HPV Vaccines Aged Out No longer eligi ble based on patient's age to complete this topic Hepatitis A Vaccines Aged Out No long er eligible based on patient's age to complete this topic IPV Vaccines Aged Out No longer eligi ble based on patient's age to complete this topic MMR Vaccines Aged Out No longer eligi ble based on patient's age to complete this topic Meningococcal ACWY Vaccine Aged Out N o longer eligible based on patient's age to complete this topic Meningococcal B Vaccine Aged Out No l onger eligible based on patient's age to complete this topic RSV Immunization Patients Under 20 months Aged Out No longer eligible based on patient's age to complete this topic Varicella Vaccines Aged Out No longer eligible based on patient's age to complete this topic Procedures Procedure Name Priority Date/Time Associated Diagnosis Comments MG MAMMO DIGITAL SCREENING W TONY BILAT Routine 12/09/2024 8:41 AM EDT Encounter for screening mammogram for breast cancer MICROALBUMIN CREATININE URINE RATIO Routine 10/13/2024 10:14 AM EST Type 2 diabetes mellitus with complication, without long-term current use of insulin ([facility] V24, [facility] V28) COMPREHENSIVE METABOLIC PANEL Routine 10/13/2024 10:14 AM EST Type 2 diabetes mellitus with complication, without long-term current use of insulin ([facility] V24, [facility] V28) Primary hypertension Vitamin B12 deficiency Vitamin D deficiency HEMOGLOBIN A1C Routine 10/13/2024 10:14 AM EST Type 2 diabetes mellitus with complication, without long-term current use of insulin ([facility] V24, [facility] V28) Primary hypertension Vitamin B12 deficiency Vitamin D deficiency LIPID PANEL WITH REFLEX TO DIRECT LDL Routine 10/13/2024 10:14 AM EST Type 2 diabetes mellitus with complication, without long-term current use of insulin ([facility] V24, [facility] V28) Primary hypertension Vitamin B12 deficiency Vitamin D deficiency COLONOSCOPY Routine 08/31/2024 8:30 AM EST Normocytic hypochromic anemia Special screening for malignant neoplasms, colon HM HPV Routine 11/13/2023 from Last 3 Months or Most Recently Relevant to Health Maintenance Results * MG Mammo Digital Screening w Tony bilat (12/09/2024 8:41 AM EDT) Anatomical Region Laterality Modality Breast Bilateral Mammography 12/09/2024 9:01 AM EDT Impressions 12/09/2024 9:10 AM EDT No mammographic evidence of malignancy. ?? No suspicious interval change. A negative mammogram in the presence of a clinically suspicious palpable abnormality does not preclude the possibility of malignancy or alter the indications for biopsy. ASSESSMENT: ?? BI-RADS 1: NEGATIVE RECOMMENDATION(S): 1: Routine screening mammogram BILATERAL in 1 year. [facility]amm[facility] location[facility] at [address], [address] -------- FINAL REPORT -------- Dictated By: Luc Kumar Dictated Date: 12/09/2024 09:01 ET Assigned Physician: Luc Kumar Reviewed and Electronically Signed By: Luc Kumar Signed Date: 12/09/2024 09:10 ET Workstation ID: [id number] Transcribed By: Self Edit Transcribed Date: 12/09/2024 09:01 ET Narrative 12/09/2024 9:10 AM EDT EXAM: ??SCREENING MAMMOGRAPHY, BILATERAL HISTORY: ??SCREENING. ??Family history of breast cancer, sister diagnosed age 52. COMPARISON: ??12/08/2023 TECHNIQUE: Synthesized CC and MLO projections of each breast. ??Tomosynthesis of each breast in the CC and MLO projections. ADDITIONAL IMAGING: None Computer-aided detection was employed with the iCAD ??ProFound AI 3-D. TISSUE DENSITY: There are scattered areas of fibroglandular density. (BI-RADS category B) FINDINGS: RIGHT BREAST: No suspicious mass. No suspicious calcification. No distortion. ?? No additional suspicious right breast findings LEFT BREAST: No suspicious mass. No suspicious calcification. No distortion. ?? No additional suspicious left breast findings Procedure Note Luc Kumar MD - 12/09/2024 EXAM: SCREENING MAMMOGRAPHY, BILATERAL HISTORY: SCREENING. Family history of breast cancer, sister diagnosedage 52. COMPARISON: 12/08/2023 TECHNIQUE: Synthesized CC and MLO projections of each breast.Tomosynthesis of each breast in the CC and MLO projections. ADDITIONAL IMAGING: None Computer-aided detection was employed with the iCAD ProFound AI 3-D. TISSUE DENSITY: There are scattered areas of fibroglandular density.(BI-RADS category B) FINDINGS: RIGHT BREAST: No suspicious mass. No suspicious calcification. No distortion. Noadditional suspicious right breast findings LEFT BREAST: No suspicious mass. No suspicious calcification. No distortion. Noadditional suspicious left breast findings IMPRESSION: No mammographic evidence of malignancy. No suspicious interval change. A negative mammogram in the presence of a clinically suspicious palpableabnormality does not preclude the possibility of malignancy or alter theindications for biopsy. ASSESSMENT: BI-RADS 1: NEGATIVE RECOMMENDATION(S): 1: Routine screening mammogram BILATERAL in 1 year. [facility]amm[facility] location: [facility] at [address], [address] -------- FINAL REPORT -------- Dictated By: Luc Kumar Dictated Date: 12/09/2024 09:01 ET Assigned Physician: Luc Kumar Reviewed and Electronically Signed By: Luc Kumar Signed Date: 12/09/2024 09:10 ET Workstation ID: [id number] Transcribed By: Self Edit Transcribed Date: 12/09/2024 09:01 ET us Self Referral Sppl IMG BI PROCEDURES Final Resul t * (ABNORMAL) Lipid panel with reflex to direct LDL (10/13/2024 10:14 AM EST) Cholesterol 116 0 - 200 mg/dL LAB CHEMISTRY METHOD 10/13/2024 4:02 PM EST [facility] Triglycerides 147 0 - 150 mg/dL LAB CHEMISTRY METHOD 10/13/2024 4:02 PM EST [facility] HDL 37(L) >=40 mg/dL LAB CHEMISTRY METHOD 10/13/2024 4:02 PM EST [facility] LDL Calculated 50 0 - 100 mg/dL LAB CHEMISTRY METHOD 10/13/2024 4:02 PM EST [facility] VLDL Cholesterol Jose 29.4 mg/dL LAB CHEMISTRY METHOD 10/13/2024 4:[address] [facility] Non HDL Chol. (LDL+VLDL) 79 <145 mg/dL LAB CHEMISTRY METHOD 10/13/2024 4:[address] [facility] Chol/HDL Ratio 3.1 0.0 - 4.4 LAB CHEMISTRY METHOD 10/13/2024 4:[address] [facility] Blood Venous blood specimen / Unknown Venipuncture / Unknown 10/13/2024 10:14 AM EST 10/13/2024 10:14 AM EST us Latoya Wang MD LAB BLOOD ORDERABLES Final Res ult Performing Organization Address City/[facility]/ZIP Co de Phone Number [facility] [address] [place] [address], [place] [phone] * (ABNORMAL) Microalbumin creatinine urine ratio (10/13/2024 10:14 AM EST) Creatinine, Urine 22.0 mg/dL LAB CHEMISTRY METHOD 10/13/2024 6:[address] [facility] Microalb, Ur 7.9 0.0 - 29.0 mg/L LAB CHEMISTRY METHOD 10/13/2024 6:[address] [facility] Microalb/Creat Ratio 36(H) <30 mg/g creat LAB CHEMISTRY METHOD 10/13/2024 6:[address] [facility] Urine Urine specimen obtained by clean catch procedure / Unknown Non-blood Collection / Unknown 10/13/2024 10:14 AM EST 10/13/2024 10:14 AM EST us Latoya Wang MD LAB URINE ORDERABLES Final Res ult [facility] [address] [place] [address], [place] [phone] * (ABNORMAL) Hemoglobin A1c (10/13/2024 10:14 AM EST) [facility] Hemoglobin A1C 7.3(H) <6.5 % LAB CHEMISTRY METHOD 10/14/2024 9:[address] [facility] Mean Bld Glu Estim. 163 mg/dL LAB CHEMISTRY METHOD 10/14/2024 9:[address] [facility] Blood Venous blood specimen / Unknown Venipuncture / Unknown 10/13/2024 10:14 AM EST 10/13/2024 10:14 AM EST us Latoya Wang MD LAB BLOOD ORDERABLES Final Res ult [facility] [address] [place] [address], [place] [phone] * (ABNORMAL) Comprehensive metabolic panel (10/13/2024 10:14 AM EST) [facility] Sodium 135 133 - 145 mmol/L LAB CHEMISTRY METHOD 10/13/2024 4:[address] [facility] Potassium 4.2 3.5 - 5.5 mmol/L LAB CHEMISTRY METHOD 10/13/2024 4:[address] [facility] Chloride 105 96 - 110 mmol/L LAB CHEMISTRY METHOD 10/13/2024 4:[address] [facility] CO2 26 21 - 32 mmol/L LAB CHEMISTRY METHOD 10/13/2024 4:[address] [facility] Anion Gap 4 3 - 11 LAB CHEMISTRY METHOD 10/13/2024 4:[address] [facility] Glucose 132(H) 70 - 100 mg/dL LAB CHEMISTRY METHOD 10/13/2024 4:[address] [facility] BUN 10 5 - 25 mg/dL LAB CHEMISTRY METHOD 10/13/2024 4:[address] [facility] Creatinine 0.79 0.50 - 1.10 mg/dL LAB CHEMISTRY METHOD 10/13/2024 4:[address] [facility] eGFR 92 >=60 mL/min/1. 73m2 LAB CHEMISTRY METHOD 10/13/2024 4:[address] [facility] Comment:Calculation based on the??Chronic Kidney Disease Epidemiology Collaboration (CKD-EPI) equation refit??without adjustment for race. BUN/Creatinine Ratio 12.7 LAB CHEMISTRY METHOD 10/13/2024 4:[address] [facility] Calcium 9.1 8.5 - 10.5 mg/dL LAB CHEMISTRY METHOD 10/13/2024 4:[address] [facility] AST (SGOT) 12 10 - 42 unit/L LAB CHEMISTRY METHOD 10/13/2024 4:[address] [facility] ALT (SGPT) 34 10 - 60 unit/L LAB CHEMISTRY METHOD 10/13/2024 4:[address] [facility] Alkaline Phosphatase 99 42 - 121 unit/L LAB CHEMISTRY METHOD 10/13/2024 4:[address] [facility] Total Protein 7.4 6.0 - 8.0 g/dL LAB CHEMISTRY METHOD 10/13/2024 4:[address] [facility] Albumin 3.8 3.2 - 5.0 g/dL LAB CHEMISTRY METHOD 10/13/2024 4:[address] [facility] Total Bilirubin 0.4 0.0 - 1.4 mg/dL LAB CHEMISTRY METHOD 10/13/2024 4:[address] [facility] Blood Venous blood specimen / Unknown Venipuncture / Unknown 10/13/2024 10:14 AM EST 10/13/2024 10:14 AM EST us Latoya Wang MD LAB BLOOD ORDERABLES Final Res ult [facility] [address] [place] [address], * COLONOSCOPY Anesthesia - MAC; [facility] ENDOSCOPY (08/31/2024 8:30 AM EST) Anatomical Region Laterality Modality Endoscopy 08/31/2024 8:09 AM EST Impressions 08/31/2024 8:36 AM EST - Hemorrhoids found on perianal exam. ? - One 5 mm polyp in the sigmoid colon, removed with a ? cold snare. Resected and retrieved. ? - The examination was otherwise normal on direct and ? retroflexion views. Recommendation: ?- - Discharge patient to home. ? - High fiber diet. ? - Continue present medications. ? - Await pathology results. ? - Repeat colonoscopy for surveillance based on ? pathology results. Narrative 08/31/2024 8:36 AM EST [facility] Patient Name: Ibeth Durand Procedure Date: 08/31/2024 8:09 AM Date of : 1975 Age: 49 Gender: Female Note Status: Finalized Attending MD: Rishi Garcia DO, [id number] Procedure Date No Time: 08/31/2024 Procedure: ? Colonoscopy Indications: ? Iron deficiency anemia Providers: ? Rishi Garcia DO Referring MD: ?Latoya Edyanti, MD Medicines: ? Monitored Anesthesia Care Complications: ? No immediate complications. Estimated blood loss: ? Minimal. Estimated Blood Loss: ? Estimated blood loss was minimal. Procedure: ? Pre-Anesthesia Assessment: ? - - Prior to the procedure, a History and Physical was ? performed, and patient medications and allergies were ? reviewed. The patient is competent. The risks and ? benefits of the procedure and the sedation options and ? risks were discussed with the patient. All questions ? were answered and informed consent was obtained. ? Patient identification and proposed procedure were ? verified by the physician, the nurse, the ? anesthesiologist, the life scientists and the respiratory support technician ? in the pre-procedure area in the endoscopy suite. ? Mental Status Examination: alert and oriented. Airway ? Examination: normal oropharyngeal airway and neck ? mobility. Respiratory Examination: clear to ? auscultation. CV Examination: normal. Prophylactic ? Antibiotics: The patient does not require prophylactic ? antibiotics. Prior Anticoagulants: The patient has ? taken no anticoagulant or antiplatelet agents. ASA ? Grade Assessment: II - A patient with severe systemic ? disease. After reviewing the risks and benefits, the ? patient was deemed in satisfactory condition to ? undergo the procedure. The anesthesia plan was to use ? monitored anesthesia care (MAC). Immediately prior to ? administration of medications, the patient was ? re-assessed for adequacy to receive sedatives. The ? heart rate, respiratory rate, oxygen saturations, ? blood pressure, adequacy of pulmonary ventilation, and ? response to care were monitored throughout the ? procedure. The physical status of the patient was ? re-assessed after the procedure. ? After I obtained informed consent, the scope was ? passed under direct vision. Throughout the procedure, ? the patient's blood pressure, pulse, and oxygen ? saturations were monitored continuously.The Olympus ? Pediatric Colonoscope was introduced through the anus ? and advanced to the terminal ileum. The colonoscopy ? was performed without difficulty. The patient ? tolerated the procedure well. The quality of the bowel ? preparation was good. Findings: ?Hemorrhoids were found on perianal exam. ? A 5 mm polyp was found in the sigmoid colon. The polyp ? was sessile. The polyp was removed with a cold snare. ? Resection and retrieval were complete. Estimated blood ? loss was minimal. ? The exam was otherwise without abnormality on direct ? and retroflexion views. Procedure Code(s): ? --- Professional --- ? 45373, Colonoscopy, flexible; with removal of ? tumor(s), polyp(s), or other lesion(s) by snare ? technique Diagnosis Code(s): ? --- Professional --- ? K64.9, Unspecified hemorrhoids ? D12.5, Benign neoplasm of sigmoid colon ? D50.9, Iron deficiency anemia, unspecified CPT copyright 2020 [employer]. All rights reserved. The codes documented in this report are preliminary and upon information coder review may be revised to meet current compliance requirements. RISHI Garcia DO 08/31/2024 8:35:51 AM This report has been signed electronically.Rishi Garcia DO Number of Addenda: 0 Note Initiated On: 08/31/2024 8:09 AM Scope Withdrawal Time: 0 hours 7 minutes 26 seconds Scope In: 8:20:53 AM Scope Out: 8:32:05 AM ? Endoscopy Department at [facility] - [address] [place] [address], ? [place] [address] Procedure Note Rishi Garcia DO - 08/31/2024 [facility] Patient Name: Ibeth Durand Procedure Date: 08/31/2024 8:09 AM Date of : 1975 Age: 49 Gender: Female Note Status: Finalized Attending MD: Rishi Garcia DO, [id number] Procedure Date No Time: 08/31/2024 Procedure: Colonoscopy Indications: Iron deficiency anemia Providers: Rishi Garcia DO Referring MD: Latoya Wang MD Medicines: Monitored Anesthesia Care Complications: No immediate complications. Estimated blood loss: Minimal. Estimated Blood Loss: Estimated blood loss was minimal. Procedure: Pre-Anesthesia Assessment: - - Prior to the procedure, a History and Physicalwas performed, and patient medications and allergieswere reviewed. The patient is competent. The risks and benefits of the procedure and the sedation optionsand risks were discussed with the patient. Allquestions were answered and informed consent was obtained. Patient identification and proposed procedure were verified by the physician, the nurse, the anesthesiologist, the life scientists and thetechnician in the pre-procedure area in the endoscopy suite. Mental Status Examination: alert and oriented.Airway Examination: normal oropharyngeal airway and neck mobility. Respiratory Examination: clear to auscultation. CV Examination: normal. Prophylactic Antibiotics: The patient does not requireprophylactic antibiotics. Prior Anticoagulants: The patient has taken no anticoagulant or antiplatelet agents. ASA Grade Assessment: II - A patient with severesystemic disease. After reviewing the risks and benefits,the patient was deemed in satisfactory condition to undergo the procedure. The anesthesia plan was touse monitored anesthesia care (MAC). Immediately priorto administration of medications, the patient was re-assessed for adequacy to receive sedatives. The heart rate, respiratory rate, oxygen saturations, blood pressure, adequacy of pulmonary ventilation,and response to care were monitored throughout the procedure. The physical status of the patient was re-assessed after the procedure. After I obtained informed consent, the scope was passed under direct vision. Throughout theprocedure, the patient's blood pressure, pulse, and oxygen saturations were monitored continuously.The Olympus Pediatric Colonoscope was introduced through theanus and advanced to the terminal ileum. The colonoscopy was performed without difficulty. The patient tolerated the procedure well. The quality of thebowel preparation was good. Findings: Hemorrhoids were found on perianal exam. A 5 mm polyp was found in the sigmoid colon. Thepolyp was sessile. The polyp was removed with a coldsnare. Resection and retrieval were complete. Estimatedblood loss was minimal. The exam was otherwise without abnormality ondirect and retroflexion views. Procedure Code(s): --- Professional --- 12466, Colonoscopy, flexible; with removal of tumor(s), polyp(s), or other lesion(s) by snare technique Diagnosis Code(s): --- Professional --- K64.9, Unspecified hemorrhoids D12.5, Benign neoplasm of sigmoid colon D50.9, Iron deficiency anemia, unspecified CPT copyright 2020 [employer]. All rights reserved. The codes documented in this report are preliminary and upon information coder reviewmay be revised to meet current compliance requirements. RISHI Garcia DO 08/31/2024 8:35:51 AM This report has been signed electronically.Rishi Garcia DO Number of Addenda: 0 Note Initiated On: 08/31/2024 8:09 AM Scope Withdrawal Time: 0 hours 7 minutes 26 seconds Scope In: 8:20:53 AM Scope Out: 8:32:05 AM Endoscopy Department at [facility] - [address] [place] [phone] IMPRESSION: - Hemorrhoids found on perianal exam. - One 5 mm polyp in the sigmoid colon, removed witha cold snare. Resected and retrieved. - The examination was otherwise normal on directand retroflexion views. Recommendation: - - Discharge patient to home. - High fiber diet. - Continue present medications. - Await pathology results. - Repeat colonoscopy for surveillance based on pathology results. Rishi Garcia DO GI~PROCEDURE ORDERABLES Final Re sult * Cervical Cancer Screening: HPV (11/13/2023) Cervical Cancer Screening: HPV negative, abstracted Historical Provider HEALTH MAINTENANCE Final Result from Last 3 Months or Most Recently Relevant to Health Maintenance Insurance [facility] [employer] Care Teams Residential Care Officer Relationship Specialty Start Date End Date Latoya Wang MD [address] [place] [phone] PCP - General Internal Medicine 08/24/24
== END 2025-02-02 14:12 | disposition home or self-care (01) ==
LOC: HO.RHE 13:36
PROVIDERS: PCP Internal Medicine; Visit Provider Student in an Organized Health Care Education/Training Program
DX: M45.6 Ankylosing spondylitis lumbar region (principal); M41.25 Other idiopathic scoliosis, thoracolumbar region; Z79.1 Long term (current) use of non-steroidal anti-inflammatories (NSAID)
CPT/HCPCS: 99214; G2211

== ENCOUNTER → 2025-02-02 13:35 | Outpatient (BNVA) | payer OTHER, SELFPAY | PROVIDERS: PCP Internal Medicine; Visit Provider Student in an Organized Health Care Education/Training Program | DX: M45.6 Ankylosing spondylitis lumbar region (principal); M41.25 Other idiopathic scoliosis, thoracolumbar region; D64.9 Anemia, unspecified; Z79.1 Long term (current) use of non-steroidal anti-inflammatories (NSAID) | CPT/HCPCS: 99212 ==

== ENCOUNTER 2025-06-16 15:01 | Outpatient (REF) | payer OTHER, SELFPAY ==
[2025-06-16 15:36] LABS: MANUAL DIFF FLAG NO
--- OUTSIDE RECORDS SUMMARY | 2025-06-16 16:39 | XMS_ITS | Clinical Summary ---
Author Organization [facility] Address [address] [place] [address] Phone Care Team Providers Care Drop Wirer Name Role Phone Latoya Wang MD Primary Care Provider [phone] Allergies No known active allergies Medications blood-glucose meter kit 1 Kit by Does not apply route daily. 024 Active FREESTYLE LANCETS MISC 1 Piece by Does not apply route daily. 024 Active FREESTYLE LANCETS MISC 1 Stick by Does not apply route daily. 023 Active hydrocortisone 2.5 % cream Apply topically 2 (two) times a day if needed for irritation or rash. 30 g 5 025 2025 Active polyethylene glycol (MIRALAX) 17 gram packet Take 17 g by mouth 1 (one) time each day. 570 g 3 025 Active ferrous sulfate 325 mg (65 mg elemental iron) tablet Take 1 tablet (325 mg total) by mouth 1 (one) time each day. 90 tablet 3 025 Active magnesium oxide (MAG-OX) 400 mg (241.3 elemental magnesium) tabletIndication s:Essential (primary) hypertension,Typ e 2 diabetes mellitus with unspecified complications (CMS/HCC V24, CMS/HCC V28) Take 1 tablet (400 mg total) by mouth at bedtime. 30 tablet 5 025 Active dulaglutide (Trulicity) 3 mg/0.5 mL pen injector injection Inject 0.5 mL (3 mg total) under the skin 1 (one) time per week. 2 mL 5 025 Active amLODIPine (NORVASC) 5 mg tabletIndication s:Essential (primary) hypertension,Typ e 2 diabetes mellitus with unspecified complications ([facility] V24, [facility] V28) TAKE 1 TABLET BY MOUTH TWICE A DAY 180 tablet 1 025 Active metFORMIN (GLUCOPHAGE) 500 mg tablet TAKE 1 TABLET BY MOUTH TWICE A DAY WITH MEALS 180 tablet 1 025 Active Vitamin D3 50 mcg (2,000 unit) tablet TAKE 1 TABLET BY MOUTH EVERY DAY 90 tablet 1 025 Active FreeStyle Lancets 28 gauge lancets TEST ONCE DAILY. 100 each 3 025 Active blood sugar diagnostic (FreeStyle Lite Strips) test strip USE 1 TEST STRIP DAILY TO CHECK BLOOD SUGAR 100 strip 3 025 Active atorvastatin (LIPITOR) 10 mg tablet TAKE 1 TABLET BY MOUTH EVERY DAY 90 tablet 1 025 Active glipiZIDE (GLUCOTROL XL) 5 mg 24 hr tablet TAKE 1 TABLET BY MOUTH TWICE A DAY 180 tablet 1 025 Active losartan (COZAAR) 100 mg tablet TAKE 1 TABLET BY MOUTH EVERY DAY 90 tablet 1 025 Active dulaglutide (Trulicity) 0.75 mg/0.5 mL pen injector injectionIndicat ions:Type 2 diabetes mellitus with complication, without long-term current use of insulin ([facility] V24, [facility] V28) INJECT 1 PEN SUBCUTANEOUSLY ONE TIME PER WEEK 2 mL 4 025 Active losartan (COZAAR) 100 mg tablet TAKE 1 TABLET BY MOUTH EVERY DAY 90 tablet 1 025 2024 Discontinued Active Problems Problem Noted Date Diagnosed Date Ankylosing spondylitis ([facility] V24, [facility] V28 ) 10/12/2024 HLA B27 (HLA B27 positive) 10/12/2024 Kyphosis 12/12/2020 Leg length discrepancy 12/12/2020 Hypertension 04/18/2020 Type 2 diabetes mellitus wit h complication, without long-term current use of insulin ([facility] V24, [facility] V28) 04/18/2020 Immunizations Name Administration Dates Next Due Influenza, Unspecified 10/10/2021 Surgical History Surgery Date Site/Laterality Comments SECTION PROCEDURE: HISTORICAL DELIVERY; COMMENT: times 2 Medical History Medical History Date Comments Diabetes mellitus type 2, uncomplicated ([facility] V24, [facility] V28) 04/18/2020 DX:Diabetes mellitus type 2, uncomplicated ([facility]) Hypertension 04/18/2020 DX:Hypertension Family History Medical History [...] 88 10/12/2024 1:38 PM EST Temperature 36.4 C (97.5 F) 10/12/2024 1:38 PM EST Respiratory Rate 16 08/31/2024 8:51 AM EST Oxygen Saturation 99% 10/12/2024 1:38 PM EST Inhaled Oxygen Concentration - - Weight 67.1 kg (148 lb) 12/09/2024 8:34 AM EDT Height 160 cm (5' 3 ) 12/09/2024 8:34 AM EDT Body Mass Index 26.22 12/09/2024 8:34 AM EDT Plan of Treatment Upcoming Encounters Date Type Department Care Team (Late st Contact Info) Description 06/22/2025 1:00 PM EDT Office Visit Internal Medicine - [place] [address] [facility] [address] [place] [address] Latoya Wang MD [address] [facility] [address] [place] [address] Health Maintenance Due Date Last Done Comments Diabetes: Annual Foot Exam 1986 Diabetes: Annual Retina Eye Exam 1986 Hepatitis B Vaccines (1 of 3 - 19+ 3-dose series) 1995 Pneumococcal Vaccine: Pediatrics (0 to 5 Years) and At-Risk Patients (6 to 49 Years) (2 of 2 - PCV) 09/17/2013 09/17/2012 DTaP,Tdap,and Td Vaccines (2 - Td or Tdap) 08/12/2022 08/12/2012 HIV Screening 09/01/2022 Hepatitis C Screening 09/01/2022 Social Influencers of Health Screening 09/01/2022 Depression Screening 09/29/2024 Diabetes: Blood Sugar Control Test (HGBA1C) 04/12/2025 10/13/2024, 11/13/2023 COVID-19 Vaccine ( season) 2025 Influenza Vaccine (#1) 2025 , 08/18/2014, 10/05/2013, Additional history exists Diabetes: Annual [...] complication, without long-term current use of insulin ([facility] V24, [facility] V28) COMPREHENSIVE METABOLIC PANEL Routine 10/13/2024 10:14 AM EST Type 2 diabetes mellitus with complication, without long-term current use of insulin ([facility] V24, [facility] V28) Primary hypertension Vitamin B12 deficiency Vitamin D deficiency HEMOGLOBIN A1C Routine 10/13/2024 10:14 AM EST Type 2 diabetes mellitus with complication, without long-term current use of insulin ([facility] V24, [facility] V28) Primary hypertension Vitamin B12 deficiency Vitamin D deficiency LIPID PANEL WITH REFLEX TO DIRECT LDL Routine 10/13/2024 10:14 AM EST Type 2 diabetes mellitus with complication, without long-term current use of insulin ([facility] V24, [facility] V28) Primary hypertension Vitamin B12 deficiency Vitamin [...] AM EDT No mammographic evidence of malignancy. No suspicious interval change. A negative mammogram in the presence of a clinically suspicious palpable abnormality does not preclude the possibility of malignancy or alter the indications for biopsy. ASSESSMENT: BI-RADS 1: NEGATIVE RECOMMENDATION(S): 1: Routine screening mammogram BILATERAL in 1 year. [facility] at [address], [address] -------- FINAL REPORT -------- Dictated By: Luc Kumar Dictated Date: 12/09/2024 09:01 ET Assigned Physician: Luc Kumar Reviewed and Electronically Signed By: Luc Kumar Signed Date: 12/09/2024 09:10 ET Workstation ID: [id number] Transcribed By: Self Edit Transcribed Date: 12/09/2024 09:01 ET Narrative 12/09/2024 9:10 AM EDT EXAM: SCREENING MAMMOGRAPHY, BILATERAL HISTORY: SCREENING. Family history of breast cancer, sister diagnosed age 52. COMPARISON: 12/08/2023 TECHNIQUE: Synthesized CC and MLO projections of each breast. Tomosynthesis of each breast in the CC and MLO projections. ADDITIONAL IMAGING: None Computer-aided detection was employed with the iCAD ProFound AI 3-D. TISSUE DENSITY: There are scattered areas of fibroglandular density. (BI-RADS category B) FINDINGS: RIGHT BREAST: No suspicious mass. No suspicious calcification. No distortion. No additional suspicious right breast findings LEFT BREAST: No suspicious mass. No suspicious calcification. No distortion. No additional suspicious left breast findings Procedure [...] year. Mamm[facility] location: [facility] at [address], [address] -------- FINAL REPORT -------- Dictated By: Luc Kumar Dictated Date: 12/09/2024 09:01 ET Assigned Physician: Luc Kumar Reviewed and Electronically Signed By: Luc Kumar Signed Date: 12/09/2024 09:10 ET Workstation ID: [id number] Transcribed By: Self Edit Transcribed Date: 12/09/2024 09:01 ET us Self Referral Sppl IMG BI PROCEDURES Final Resul t * (ABNORMAL) Lipid panel with reflex to direct LDL (10/13/2024 10:14 AM EST) Cholesterol 116 0 - 200 mg/dL LAB CHEMISTRY METHOD 10/13/2024 4:02 PM EST [facility] Triglycerides 147 0 - 150 mg/dL LAB CHEMISTRY METHOD 10/13/2024 4:02 PM EST [facility] HDL 37(L) >=40 mg/dL LAB CHEMISTRY METHOD 10/13/2024 4:02 PM EST [facility] LDL Calculated 50 0 - 100 mg/dL LAB CHEMISTRY METHOD 10/13/2024 4:02 PM EST [facility] VLDL Cholesterol Jose 29.4 mg/dL LAB CHEMISTRY METHOD 10/13/2024 4:02 PM [facility] Non HDL Chol. (LDL+VLDL) 79 <145 mg/dL LAB CHEMISTRY METHOD 10/13/2024 4:02 PM [facility] Chol/HDL Ratio 3.1 0.0 - 4.4 LAB CHEMISTRY METHOD 10/13/2024 4:02 PM [facility] Blood Venous blood specimen / Unknown Venipuncture / Unknown 10/13/2024 10:14 AM EST 10/13/2024 10:14 AM EST us Latoya Wang MD LAB BLOOD ORDERABLES Final Res ult Performing Organization Address [facility]/ZIP Co de Phone Number [facility] [address] [place] [address], [place] [phone] * (ABNORMAL) Microalbumin creatinine urine ratio (10/13/2024 10:14 AM EST) Creatinine, Urine 22.0 mg/dL LAB CHEMISTRY METHOD 10/13/2024 6:32 PM [facility] Microalb, Ur 7.9 0.0 - 29.0 mg/L LAB CHEMISTRY METHOD 10/13/2024 6:32 PM [facility] Microalb/Creat Ratio 36(H) <30 mg/g creat LAB CHEMISTRY METHOD 10/13/2024 6:32 PM [facility] Urine Urine specimen obtained by clean catch procedure / Unknown Non-blood Collection / Unknown 10/13/2024 10:14 AM EST 10/13/2024 10:14 AM EST us Latoya Wang MD LAB URINE ORDERABLES Final Res ult Performing Organization Address [facility]/ZIP Co de Phone Number [facility] [address] [place] [address], [place] [phone] * (ABNORMAL) Hemoglobin A1c (10/13/2024 10:14 AM EST) Hemoglobin A1C 7.3(H) <6.5 % LAB CHEMISTRY METHOD 10/14/2024 9:54 AM [facility] Mean Bld Glu Estim. 163 mg/dL LAB CHEMISTRY METHOD 10/14/2024 9:54 AM [facility] Blood Venous blood specimen / Unknown Venipuncture / Unknown 10/13/2024 10:14 AM EST 10/13/2024 10:14 AM EST us Latoya Wang MD LAB BLOOD ORDERABLES Final Res ult [facility] [address] [place] [address], * (ABNORMAL) Comprehensive metabolic panel (10/13/2024 10:14 AM EST) Pathologist [facility] Sodium 135 133 - 145 mmol/L LAB CHEMISTRY METHOD 10/13/2024 4:02 PM [facility] Potassium 4.2 3.5 - 5.5 mmol/L LAB CHEMISTRY METHOD 10/13/2024 4:02 PM [facility] Chloride 105 96 - 110 mmol/L LAB CHEMISTRY METHOD 10/13/2024 4:02 PM [facility] CO2 26 21 - 32 mmol/L LAB CHEMISTRY METHOD 10/13/2024 4:02 PM [facility] Anion Gap 4 3 - 11 LAB CHEMISTRY METHOD 10/13/2024 4:02 PM [facility] Glucose 132(H) 70 - 100 mg/dL LAB CHEMISTRY METHOD 10/13/2024 4:02 PM [facility] BUN 10 5 - 25 mg/dL LAB CHEMISTRY METHOD 10/13/2024 4:02 PM [facility] Creatinine 0.79 0.50 - 1.10 mg/dL LAB CHEMISTRY METHOD 10/13/2024 4:02 PM [facility] eGFR 92 >=60 mL/min/1. 73m2 LAB CHEMISTRY METHOD 10/13/2024 4:02 PM [facility] Comment:Calculation based on the Chronic Kidney Disease Epidemiology Collaboration (CKD-EPI) equation refit without adjustment for race. BUN/Creatinine Ratio 12.7 LAB CHEMISTRY METHOD 10/13/2024 4:02 PM [facility] Calcium 9.1 8.5 - 10.5 mg/dL LAB CHEMISTRY METHOD 10/13/2024 4:02 PM [facility] AST (SGOT) 12 10 - 42 unit/L LAB CHEMISTRY METHOD 10/13/2024 4:02 PM [facility] ALT (SGPT) 34 10 - 60 unit/L LAB CHEMISTRY METHOD 10/13/2024 4:02 PM [facility] Alkaline Phosphatase 99 42 - 121 unit/L LAB CHEMISTRY METHOD 10/13/2024 4:02 PM [facility] Total Protein 7.4 6.0 - 8.0 g/dL LAB CHEMISTRY METHOD 10/13/2024 4:02 PM [facility] Albumin 3.8 3.2 - 5.0 g/dL LAB CHEMISTRY METHOD 10/13/2024 4:02 PM [facility] Total Bilirubin 0.4 0.0 - 1.4 mg/dL LAB CHEMISTRY METHOD 10/13/2024 4:02 PM [facility] Blood Venous blood specimen / Unknown Venipuncture / Unknown 10/13/2024 10:14 AM EST 10/13/2024 10:14 AM EST us Latoya Wang MD LAB BLOOD ORDERABLES Final Res ult [facility] [address] [place], [place] [address] [phone] * COLONOSCOPY Anesthesia - MAC; [facility] ENDOSCOPY (08/31/2024 8:30 AM EST) Anatomical Region Laterality Modality Endoscopy 08/31/2024 8:09 AM EST Impressions 08/31/2024 8:36 AM EST - Hemorrhoids found on perianal exam. - One 5 mm polyp in the sigmoid colon, removed with a cold snare. Resected and retrieved. - The examination was otherwise normal on direct and retroflexion views. Recommendation: - - Discharge patient to home. - High fiber diet. - Continue present medications. - Await pathology results. - Repeat colonoscopy for surveillance based on pathology results. Narrative 08/31/2024 8:36 AM EST [facility] GI Patient Name: Micaela Carvalho Procedure Date: 08/31/2024 8:09 AM Date of : 1975 Age: 49 Gender: Female Note Status: Finalized Attending MD: Rishi Garcia DO, [id number] Procedure Date No Time: 08/31/2024 Procedure: Colonoscopy Indications: Iron deficiency anemia Providers: Rishi Garcia DO Referring MD: Latoya Wang MD Medicines: Monitored Anesthesia Care Complications: No immediate complications. Estimated blood loss: Minimal. Estimated Blood Loss: Estimated blood loss was minimal. Procedure: Pre-Anesthesia Assessment: - - Prior to the procedure, a History and Physical was performed, and patient medications and allergies were reviewed. The patient is competent. The risks and benefits of the procedure and the sedation options and risks were discussed with the patient. All questions were answered and informed consent was obtained. Patient identification and proposed procedure were verified by the physician, the nurse, the anesthesiologist, the insecticide supervisor and the fitness technician in the pre-procedure area in the endoscopy suite. Mental Status Examination: alert and oriented. Airway Examination: normal oropharyngeal airway and neck mobility. Respiratory Examination: clear to auscultation. CV Examination: normal. Prophylactic Antibiotics: The patient does not require prophylactic antibiotics. Prior Anticoagulants: The patient has taken no anticoagulant or antiplatelet agents. ASA Grade Assessment: II - A patient with severe systemic disease. After reviewing the risks and benefits, the patient was deemed in satisfactory condition to undergo the procedure. The anesthesia plan was to use monitored anesthesia care (MAC). Immediately prior to administration of medications, the patient was re-assessed for adequacy to receive sedatives. The heart rate, respiratory rate, oxygen saturations, blood pressure, adequacy of pulmonary ventilation, and response to care were monitored throughout the procedure. The physical status of the patient was re-assessed after the procedure. After I obtained informed consent, the scope was passed under direct vision. Throughout the procedure, the patient's blood pressure, pulse, and oxygen saturations were monitored continuously.The Olympus Pediatric Colonoscope was introduced through the anus and advanced to the terminal ileum. The colonoscopy was performed without difficulty. The patient tolerated the procedure well. The quality of the bowel preparation was good. Findings: Hemorrhoids were found on perianal exam. A 5 mm polyp was found in the sigmoid colon. The polyp was sessile. The polyp was removed with a cold snare. Resection and retrieval were complete. Estimated blood loss was minimal. The exam was otherwise without abnormality on direct and retroflexion views. Procedure Code(s): --- Professional --- 54979, Colonoscopy, flexible; with removal of tumor(s), polyp(s), or other lesion(s) by snare technique Diagnosis Code(s): --- Professional --- K64.9, Unspecified hemorrhoids D12.5, Benign neoplasm of sigmoid colon D50.9, Iron deficiency anemia, unspecified CPT copyright 2021 [employer]. All rights reserved. The codes documented in this report are preliminary and upon icd 9 coder review may be revised to meet current compliance requirements. RISHI Garcia DO 08/31/2024 8:35:51 AM This report has been signed electronically.Rishi Garcia DO Number of Addenda: 0 Note Initiated On: 08/31/2024 8:09 AM Scope Withdrawal Time: 0 hours 7 minutes 26 seconds Scope In: 8:20:53 AM Scope Out: 8:32:05 AM Endoscopy Department at [facility] - [address] [place] [phone] Procedure Note Rishi Garcia DO - 08/31/2024 [facility] GI Patient Name: Micaela Carvalho Procedure Date: 08/31/2024 8:09 AM Date of : 1975 Age: 49 Gender: Female Note Status: Finalized Attending MD: Rishi Garcia DO, [id number] Procedure Date No Time: 08/31/2024 Procedure: Colonoscopy [...] the physician, the nurse, the anesthesiologist, the insecticide supervisor and thetechnician in the pre-procedure area in [...] retroflexion views. Procedure Code(s): --- Professional --- 56622, Colonoscopy, flexible; with removal of tumor(s), polyp(s), or other lesion(s) by snare technique Diagnosis Code(s): --- Professional --- K64.9, Unspecified hemorrhoids D12.5, Benign neoplasm of sigmoid colon D50.9, Iron deficiency anemia, unspecified CPT copyright 2020 [employer]. All rights reserved. The codes documented in this report are preliminary and upon icd 9 coder reviewmay be revised to meet current compliance requirements. RISHI Garcia DO 08/31/2024 8:35:51 AM This report has been signed electronically.Rishi Garcia DO Number of Addenda: 0 Note Initiated On: 08/31/2024 8:09 AM Scope Withdrawal Time: 0 hours 7 minutes 26 seconds Scope In: 8:20:53 AM Scope Out: 8:32:05 AM Endoscopy Department at [facility] - [address] [place] [phone] IMPRESSION: - Hemorrhoids found on perianal exam. [...] sult * Cervical Cancer Screening: HPV (11/13/2023) Pathologist [facility] Cervical Cancer Screening: HPV negative, abstracted Historical Provider HEALTH MAINTENANCE Final Result from Last 3 Months or Most Recently Relevant to Health Maintenance Insurance [facility] PL[facility] Care Teams Drop Wirer Relationship Specialty Start Date End Date Latoya Wang MD [address] [phone] PCP - General Internal Medicine 08/24/24
--- OUTSIDE RECORDS SUMMARY | 2025-06-16 16:39 | XMS_ITS ---
Author Name [facility] Organization Unknown Care Team Organization Name Specialty Phone Email Start Date End Da te [facility] Primary [facility] 08/06/2022 05/17/20 24
[2025-06-16 17:02] LABS: Hematocrit 36.9 % (37.0-47.0); Hemoglobin 12.0 g/dl (12.0-16.0); Imm Gran Abs Auto 0.03 X10*3/uL (0.00-0.03); Imm Gran Pct Auto 0.4 % (0.0-0.4); Lymphocytes Absolute Auto 2.9 X10*3/uL (1.2-4.9); Mean Corpuscular HGB Conc 32.5 g/dl (31.0-35.0); Mean Corpuscular Hemoglobin 25.2 pg (27.0-33.0); Mean Corpuscular Volume 77.5 fL (80.0-98.0); NRBC Abs Auto 0.000 X10*3/uL (0.0-0.012); NRBC Pct Auto 0.0 /100WBC (0.0-0.2); Platelet Count 245 X10*3/uL (160-400); Red Blood Count 4.76 X10*6/uL (4.20-5.50); White Blood Count 8.3 X10*3/uL (4.8-10.8)
[2025-06-16 17:34] LABS: Alanine Aminotransferase 28 U/L (0-31); Albumin Level 4.6 g/dL (3.5-5.0); Alkaline Phosphatase 85 U/L (39-117); Anion Gap 11 (12-20); Aspartate Amino Transferase 23 U/L (5-31); Blood Urea Nitrogen 9 mg/dL (9-16); Calcium 9.8 mg/dL (8.4-10.2); Carbon Dioxide 28 mmol/L (22-29); Chloride 107 mmol/L (96-108); Estimated Glomerular Filt Rate > 60; Potassium 4.0 mmol/L (3.3-5.1); Sodium 142 mmol/L (135-145); Total Protein 7.7 g/dL (6.5-8.0)
[2025-06-17 12:52] LABS: Hematocrit 39.6 % (35.0-45.0); Hemoglobin 12.4 g/dL (11.7-15.5); MCH 25.3 pg (27.0-33.0); MCV 80.7 fL (80.0-100.0); RBC 4.91 Million/uL (3.80-5.10); RDW 14.1 % (11.0-15.0)
== END 2025-06-16 15:02 | disposition home or self-care (01) ==
LOC: HO.LAB 15:01
PROVIDERS: PCP Internal Medicine; Visit Provider Student in an Organized Health Care Education/Training Program
DX: M45.6 Ankylosing spondylitis lumbar region (principal); D64.9 Anemia, unspecified
CPT/HCPCS: 36415; 80053; 83020; 85014; 85018; 85025; 85041; 85652; 86140

== ENCOUNTER 2025-06-22 14:25 | Outpatient (AMB) | payer OTHER, SELFPAY ==
--- NOTE | 2025-06-22 14:35 | A.OFFVIS_ITS ---
Vital Signs 06/22/25 14:41 Height 5 ft 3 in Weight 140 lb 10.479 oz BMI 24.9 BP 142/80 H Blood Pressure Location Lt brachial Position Sitting Pulse 83 Pulse Source Pulse Oximeter Pulse Oximetry (%) 100 Oxygen Delivery Method Room Air Intake Visit Reasons: f/u Intake Note: Patient presents for follow up. Allergies No Known Allergies Allergy (Verified 06/22/25 14:39) Medication List - Last Reconciled 06/22/25 by Sonya Tafoya MD amlodipine 5 mg PO BID atorvastatin 10 mg PO DAILY back brace Posture Back Brace for Scoliosis blood sugar diagnostic (FreeStyle Lite Strips) As directed blood-glucose meter (FreeStyle Lite Meter kit) As directed celecoxib 100 mg PO BID cholecalciferol (vitamin D3) (Vitamin D3) 50 mcg PO DAILY dulaglutide (Trulicity) mg subcut ferrous sulfate 325 mg PO DAILY glipizide ER 5 mg PO BID lancets (FreeStyle Lancets) As directed losartan 100 mg PO DAILY magnesium oxide 400 mg PO DAILY metformin 500 mg PO BID HPI Comments Details: Patient is a 50-year-old female with hypertension, diabetes and ankylosing spondylitis who presents today for follow up Interval History: Last seen 02/02/2025 with me. - On celebrex 200mg bid - Patient has not been taking celebrex as prescribed - Only taking it once a day out of concern of the side effects - Has noticed that the celebrex helps with the pain but continues to complain of back pain Today - On celebrex 200mg bid - Self discontinued medication - No back pain today - Complaining of triggering of her middle right finger Rheumatologic History: Ank Spond - RI did not show any evidence of active sacroiliits but since she had a +ve HLA B27, elevated inflammatory markers and syndesmophytes she was started on celebrex for anklyosing spondyloarthritis Patient initially presented 01/27/2024 on a background of lumbar x-rays showing flowing syndesmophytes with concern for ankylosing spondylitis. Exam at that time did not reveal any history of dactylitis, uveitis or peripheral arthritis Labs indicated elevated ESR and CRP as well as positive HLA b27 There was no evidence of active sacroilitis on MRI of the pelvis but there was asymmetric SI joint narrowing and syndesmophytes. Patient met incomplete ASAS criteria for ankylosing spondylitis based on HLA B27 positive and elevated ESR/CRP. Started on NSAIDs 09/2024 for incomplete/early amkylosing spondylitis to prevent further syndesmophyte formation Current Rheumatology Medication(s): Celebrex 200mg bid (not taking) PFSH Medical History USP (current) use of non-steroidal anti-inflammatories (nsaid) Radiculopathy, thoracic region Radiculopathy, lumbar region Diabetes Hypertension Surgical History Hx of section Family History Mother Diabetes Father No problems noted. Social History Alcohol intake: never Patient Tobacco Use Status: Never used Tobacco Review of Systems Const Details: Review of Systems Constitutional: Denies fever, chills, weight loss ENT: Denies vision changes, eye pain or eye redness, dental caries, dry mouth GI: Denies nausea, vomiting, diarrhea, abdominal pain, change in BM Pulm: Denies SOB, SANDOVAL, hemoptysis, wheezing Cards: Denies chest pain, palpitations Skin: Denies Raynaud's, rash, nail changes, photosensitivity, PAINTER INTERIOR FINISH: Denies headaches, weakness, paresthesias, recurrent falls MSK: as per HPI All other systems reviewed and are unremarkable except noted above Physical Exam Exam Exam: Vital signs reviewed Physical Examination CONSTITUITIONAL Patient alert and cooperative. Well appearing and in no apparent painful distress MSK Hands * Right Hand: Able to make a fist. No swelling or tenderness to palpation of the MCPs, PIPs or DIPs. * Left Hand: Able to make a fist. No swelling or tenderness to palpation of the MCPs, PIPs or DIPs. 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 No swelling or TTP * Left Wrist: Full ROM to flexion and extension. No swelling or TTP Elbows * Right Elbow: Full ROM. No swelling or TTP. No TTP of the medial epicondyle. No TTP of the lateral epicondyle * Left Elbow: Full ROM. No swelling or TTP. No TTP of the medial epicondyle. No TTP of the lateral epicondyle Shoulders * Right shoulder: Full ROM. No swelling noted. No TTP of the AC joint. No TTP of the subacromial bursa. No TTP of the posterior shoulder * Left shoulder: Full ROM. No swelling noted. No TTP of the AC joint. No TTP of the subacromial bursa. No TTP of the posterior shoulder Knees * Right knee: Full ROM. No swelling noted. No TTP of the knee joint line. No TTP of pes anserine bursa * Left knee: Full ROM. No swelling noted. No TTP of the knee joint line. No TTP of pes anserine bursa. Ankles * Right ankle: Good ankle dorsiflexion and plantar flexion. No swelling. No TTP of the ankle joint * Left ankle: Good ankle dorsiflexion and plantar flexion. No swelling. No TTP of the ankle joint Feet * Right foot: Negative squeeze test * Left foot: Negative squeeze test Tender points? * No tenderness to palpation of the bilateral trapezius, supraspinatus, anterior costochondral junctions, bilateral suboccipital muscle insertions SKIN No rashes Vital Signs: Last Vital Signs Pulse 83 06/22/25 14:41 BP 142/80 H 06/22/25 14:41 Pulse Ox 100 06/22/25 14:41 Oxygen Delivery Method Room Air 06/22/25 14:41 BMI result Body Mass Index 24.9 Results Reviewed Results Reviewed: Laboratory Tests 01/27/25 06/16/25 12:05 15:35 WBC 8.3 RBC 4.76 Hgb 12.0 Hct 36.9 L Plt Count 245 ESR 17 Sodium 142 Potassium 4.0 Chloride 107 Carbon Dioxide 28 BUN 9 Creatinine 0.74 AST 23 ALT 28 C-Reactive Protein 0.68 H 0.80 H 05/26/24 HLA B27 positive RF negative CCP negative Assessment & Plan Assessment & Plan (1) Ankylosing spondylitis: Code(s): M45.9 - Ankylosing spondylitis of unspecified sites in spine Category: Medical Qualifiers: Ankylosing spondylitis location: lumbar region Qualified Code(s): M45.6 - Ankylosing spondylitis lumbar region Plan: #Ankylosing spondylitis Patient is a 50-year-old female with HLA B27 positive non radiographic ankylosing spondylitis. MRI did not show any active sacroilitis, however given the syndesmophytes, positive HLA B27 and elevated inflammatory markers she may have incomplete/pre ankylosing spondylitis. Improved after course of celebrex Plan - Hold celebrex - Monitor off NSAIDs - RTC 1 year - Labs before visit: CBC, CMP, ESR, CRP Walt ZAPATA, Donna DA, Amie M, Segundo Richardson. Benefits and risks of ankylosing spondylitis treatment with nonsteroidal antiinflammatory drugs. Arthritis Rheum. 2008 Apr;58(4):929-38. doi: 10.1002/art.24420. PMID: [id number]. (2) Trigger finger: Code(s): M65.30 - Trigger finger, unspecified finger Qualifiers: Trigger finger location: middle finger Laterality: right Qualified Code(s): M65.331 - Trigger finger, right middle finger Plan: #Trigger finger Patient with trigger finger on exam today. No TTP of the A1 puller Recommending splinting Plan I spent 20 minutes reviewing the record and labs, taking a history, examining the patient, discussing the treatment plan and documenting in the medical record Orders: Orders Complete Blood Count Auto Diff 1 Year Z79.899 - Other mcc (current) drug therapy Comprehensive Met. Panel 1 Year Z79.899 - Other vermin exterminator (current) drug therapy C Reactive Protein 1 Year Z79.899 - Other vermin exterminator (current) drug therapy Erythrocyte Sedimentation Rate 1 Year Z79.899 - Other mcc (current) drug therapy Coding Level of Care Code Est Pt Level 3 (69047) Diagnoses Ankylosing spondylitis of lumbar region M45.6 Ankylosing spondylitis location: lumbar region Trigger middle finger of right hand M65.331 Trigger finger location: middle finger Laterality: right
[2025-06-22 14:41] VITALS: BP 142/80; PULSE 83; O2SAT 100; BMI 24.9
--- OUTSIDE RECORDS SUMMARY | 2025-06-22 17:08 | XMS_ITS | Clinical Summary ---
Author Organization 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 Name Role Phone Latoya Wang MD Primary Care Provider [phone] Allergies No known active allergies Medications blood-glucose [...] e 2 diabetes mellitus with unspecified complications ([facility] V24, [facility] V28) TAKE 1 TABLET BY MOUTH [...] complication, without long-term current use of insulin ([facility] V24, [facility] V28) INJECT 1 PEN SUBCUTANEOUSLY ONE TIME PER WEEK 2 mL 4 025 Active losartan (COZAAR) 100 mg tablet TAKE 1 TABLET BY MOUTH EVERY DAY 90 tablet 1 025 2024 Discontinued Active Problems Problem Noted Date Diagnosed Date Ankylosing spondylitis ([facility] V24, [facility] V28 ) 10/12/2024 HLA B27 (HLA B27 positive) 10/12/2024 Kyphosis 12/12/2020 Leg length discrepancy 12/12/2020 Hypertension 04/18/2020 Type 2 diabetes mellitus wit h complication, without long-term current use of insulin ([facility] V24, [facility] V28) 04/18/2020 Immunizations Name Administration Dates Next Due Influenza, Unspecified 10/10/2021 Surgical History Surgery Date Site/Laterality Comments SECTION PROCEDURE: HISTORICAL DELIVERY; COMMENT: times 2 Medical History Medical History Date Comments Diabetes mellitus type 2, uncomplicated ([facility] V24, [facility] V28) 04/18/2020 DX:Diabetes mellitus type 2, uncomplicated ([facility]) Hypertension 04/18/2020 DX:Hypertension Family History Medical History [...] 11/13/2023 Colorectal Cancer Screening: Colonoscopy 08/31/2034 08/31/2024 RSV Immunization Adult Patients (1 - 1-dose 75+ series) 2051 HIB Vaccines Aged Out No longer eligi [...] complication, without long-term current use of insulin ([facility] V24, [facility] V28) COMPREHENSIVE METABOLIC PANEL Routine 10/13/2024 10:14 AM EST Type 2 diabetes mellitus with complication, without long-term current use of insulin ([facility] V24, [facility] V28) Primary hypertension Vitamin B12 deficiency Vitamin D deficiency HEMOGLOBIN A1C Routine 10/13/2024 10:14 AM EST Type 2 diabetes mellitus with complication, without long-term current use of insulin ([facility] V24, [facility] V28) Primary hypertension Vitamin B12 deficiency Vitamin D deficiency LIPID PANEL WITH REFLEX TO DIRECT LDL Routine 10/13/2024 10:14 AM EST Type 2 diabetes mellitus with complication, without long-term current use of insulin ([facility] V24, [facility] V28) Primary hypertension Vitamin B12 deficiency Vitamin [...] year. Mamm[facility] location: [facility] [address], [address] -------- FINAL REPORT -------- Dictated By: Luc Kumar Dictated Date: 12/09/2024 09:01 ET Assigned Physician: Luc Kumar Reviewed and Electronically Signed By: Luc Kumar Signed Date: 12/09/2024 09:10 ET Workstation ID: [id number] Transcribed By: Self Edit Transcribed Date: 12/09/2024 09:01 ET Narrative 12/09/2024 9:10 AM EDT EXAM: SCREENING MAMMOGRAPHY, BILATERAL HISTORY: SCREENING. Family history of breast cancer, sister diagnosed age 52. COMPARISON: 12/08/2023 TECHNIQUE: Synthesized CC and MLO projections of each breast. Tomosynthesis of each breast in the CC and MLO projections. ADDITIONAL IMAGING: None Computer-aided detection was employed with the [employer] AI 3-D. TISSUE DENSITY: There are scattered [...] None Computer-aided detection was employed with the [employer] AI 3-D. TISSUE DENSITY: There are scattered [...] year. Mammography location: [facility] at [address], [address] -------- FINAL REPORT -------- Dictated By: Luc Kumar Dictated Date: 12/09/2024 09:01 ET Assigned Physician: Luc Kumar Reviewed and Electronically Signed By: Luc Kumar Signed Date: 12/09/2024 09:10 ET Workstation ID: [id number] Transcribed By: Self Edit Transcribed Date: 12/09/2024 09:01 ET us Self Referral Sppl IMG BI PROCEDURES Final Resul t * (ABNORMAL) Lipid panel with reflex to direct LDL (10/13/2024 10:14 AM EST) Cholesterol 116 0 - 200 mg/dL LAB CHEMISTRY METHOD 10/13/2024 4:02 PM [facility] Triglycerides 147 0 - 150 mg/dL LAB CHEMISTRY METHOD 10/13/2024 4:02 PM [facility] HDL 37(L) >=40 mg/dL LAB CHEMISTRY METHOD 10/13/2024 4:02 PM [facility] LDL Calculated 50 0 - 100 mg/dL LAB CHEMISTRY METHOD 10/13/2024 4:02 PM [facility] VLDL Cholesterol Jose 29.4 mg/dL LAB CHEMISTRY METHOD 10/13/2024 4:02 PM [facility] Non HDL Chol. (LDL+VLDL) 79 <145 mg/dL LAB CHEMISTRY METHOD 10/13/2024 4:02 PM [facility] Chol/HDL Ratio 3.1 0.0 - 4.4 LAB CHEMISTRY METHOD 10/13/2024 4:02 PM EST [facility] Blood Venous blood specimen / Unknown Venipuncture / Unknown 10/13/2024 10:14 AM EST 10/13/2024 10:14 AM EST Latoya Wang MD LAB BLOOD ORDERABLES Final Res ult Performing Organization Address City/[facility]/ZIP Co de Phone Number [facility] [address] [place] [address], [place] [phone] * (ABNORMAL) Microalbumin creatinine urine ratio (10/13/2024 10:14 AM EST) Creatinine, Urine 22.0 mg/dL LAB CHEMISTRY METHOD 10/13/2024 6:32 PM [facility] Microalb, Ur 7.9 0.0 - 29.0 mg/L LAB CHEMISTRY METHOD 10/13/2024 6:32 PM EST [facility] Microalb/Creat Ratio 36(H) <30 mg/g creat LAB CHEMISTRY METHOD 10/13/2024 6:32 PM EST [facility] Urine Urine specimen obtained by clean catch procedure / Unknown Non-blood Collection / Unknown 10/13/2024 10:14 AM EST 10/13/2024 10:14 AM EST us Latoya Wang MD LAB URINE ORDERABLES Final Res ult [facility] [address] [place] [address], [place] [phone] * (ABNORMAL) Hemoglobin A1c (10/13/2024 10:14 AM EST) Hemoglobin A1C 7.3(H) <6.5 % LAB CHEMISTRY METHOD 10/14/2024 9:54 AM EST [facility] Mean Bld Glu Estim. 163 mg/dL LAB CHEMISTRY METHOD 10/14/2024 9:54 AM [facility] Blood Venous blood specimen / Unknown Venipuncture / Unknown 10/13/2024 10:14 AM EST 10/13/2024 10:14 AM EST us Latoya Wang MD LAB BLOOD ORDERABLES Final Res ult [facility] [address] [place] [address], [place] [phone] * (ABNORMAL) Comprehensive metabolic panel (10/13/2024 10:14 AM EST) Sodium 135 133 - 145 mmol/L LAB CHEMISTRY METHOD 10/13/2024 4:02 PM [facility] Potassium 4.2 3.5 - 5.5 mmol/L LAB CHEMISTRY METHOD 10/13/2024 4:02 PM [facility] Chloride 105 96 - 110 mmol/L LAB CHEMISTRY METHOD 10/13/2024 4:02 PM [facility] CO2 26 21 - 32 mmol/L LAB CHEMISTRY METHOD 10/13/2024 4:02 PM [facility] Anion Gap 4 3 - 11 LAB CHEMISTRY METHOD 10/13/2024 4:02 PM [facility] Glucose 132(H) 70 - 100 mg/dL LAB CHEMISTRY METHOD 10/13/2024 4:02 PM [facility] BUN 10 5 - 25 mg/dL LAB CHEMISTRY METHOD 10/13/2024 4:02 PM [facility] Creatinine 0.79 0.50 - 1.10 mg/dL LAB CHEMISTRY METHOD 10/13/2024 4:02 PM [facility] eGFR 92 >=60 mL/min/1. 73m2 LAB CHEMISTRY METHOD 10/13/2024 4:02 PM [facility] Comment:Calculation based on the Chronic Kidney Disease Epidemiology Collaboration (CKD-EPI) equation refit without adjustment for race. BUN/Creatinine Ratio 12.7 LAB CHEMISTRY METHOD 10/13/2024 4:02 PM [facility] Calcium 9.1 8.5 - 10.5 mg/dL LAB CHEMISTRY METHOD 10/13/2024 4:02 PM [facility] AST (SGOT) 12 10 - 42 unit/L LAB CHEMISTRY METHOD 10/13/2024 4:02 PM [facility] ALT (SGPT) 34 10 - 60 unit/L LAB CHEMISTRY METHOD 10/13/2024 4:02 PM [facility] Alkaline Phosphatase 99 42 - 121 unit/L LAB CHEMISTRY METHOD 10/13/2024 4:02 PM [facility] Total Protein 7.4 6.0 - 8.0 g/dL LAB CHEMISTRY METHOD 10/13/2024 4:02 PM [facility] Albumin 3.8 3.2 - 5.0 g/dL LAB CHEMISTRY METHOD 10/13/2024 4:02 PM [facility] Total Bilirubin 0.4 0.0 - 1.4 mg/dL LAB CHEMISTRY METHOD 10/13/2024 4:02 PM [facility] Blood Venous blood specimen / Unknown Venipuncture / Unknown 10/13/2024 10:14 AM EST 10/13/2024 10:14 AM EST us Latoya Wang MD LAB BLOOD ORDERABLES Final Res ult [facility] [address] [place] [address], * COLONOSCOPY Anesthesia - [facility]; [facility] ENDOSCOPY (08/31/2024 8:30 AM EST) Anatomical Region [...] on pathology results. Narrative 08/31/2024 8:[address] [facility] GI Patient Name: Micaela Carvalho Procedure Date: 08/31/2024 8:09 AM Date of : 1975 Age: 49 Gender: Female Note Status: Finalized Attending MD: Rishi Garcia DO, [id number] Procedure Date No Time: 08/31/2024 Procedure: Colonoscopy [...] the physician, the nurse, the anesthesiologist, the development educator and the central sterilization technician in the pre-procedure area in the [...] retroflexion views. Procedure Code(s): --- Professional --- 00000, Colonoscopy, flexible; with removal of tumor(s), polyp(s), or other lesion(s) by snare technique Diagnosis Code(s): --- Professional --- K64.9, Unspecified hemorrhoids D12.5, Benign neoplasm of sigmoid colon D50.9, Iron deficiency anemia, unspecified CPT copyright 2020 [employer]. All rights reserved. The codes documented in this report are preliminary and upon assembler body review may be revised to meet current compliance requirements. RISHI Garcia DO 08/31/2024 8:35:51 AM This report has been signed electronically.Rishi Garcia DO Number of Addenda: 0 Note Initiated On: 08/31/2024 8:09 AM Scope Withdrawal Time: 0 hours 7 minutes 26 seconds Scope In: 8:20:53 AM Scope Out: 8:32:05 AM Endoscopy Department at [facility] - [address] [place] [phone] Procedure Note Rishi Garcia DO - 08/31/2024 [facility] GI Patient Name: Micaela Carvalho Procedure Date: 08/31/2024 8:09 AM Date of : 1975 Age: 49 Gender: Female Note Status: Finalized Attending MD: Rishi Garcia DO, [id number] Procedure Date No Time: 08/31/2024 Procedure: Colonoscopy [...] the physician, the nurse, the anesthesiologist, the development educator and thetechnician in the pre-procedure area in [...] retroflexion views. Procedure Code(s): --- Professional --- 35518, Colonoscopy, flexible; with removal of tumor(s), polyp(s), or other lesion(s) by snare technique Diagnosis Code(s): --- Professional --- K64.9, Unspecified hemorrhoids D12.5, Benign neoplasm of sigmoid colon D50.9, Iron deficiency anemia, unspecified CPT copyright 2020 [employer]. All rights reserved. The codes documented in this report are preliminary and upon assembler body reviewmay be revised to meet current compliance requirements. RISHI Garcia DO 08/31/2024 8:35:51 AM This report has been signed electronically.Rishi Garcia DO Number of Addenda: 0 Note Initiated On: 08/31/2024 8:09 AM Scope Withdrawal Time: 0 hours 7 minutes 26 seconds Scope In: 8:20:53 AM Scope Out: 8:32:05 AM Endoscopy Department at [facility] - [address] [place] [phone] IMPRESSION: - Hemorrhoids found on perianal exam. [...] Cancer Screening: HPV (11/13/2023) Pathologist [facility] Cervical Cancer Screening: HPV negative, abstracted Historical Provider HEALTH MAINTENANCE Final Result from Last 3 Months or Most Recently Relevant to Health Maintenance Insurance [facility] [employer] Care Teams Women'S Soccer Coach Relationship Specialty Start Date End Date Latoya Wang MD [address] [place] [phone] PCP - General Internal Medicine 08/24/24
== END 2025-06-22 15:08 | disposition home or self-care (01) ==
LOC: HO.RHES 14:26
PROVIDERS: PCP Internal Medicine; Visit Provider Student in an Organized Health Care Education/Training Program
DX: M45.6 Ankylosing spondylitis lumbar region (principal); M65.331 Trigger finger, right middle finger
CPT/HCPCS: 99213

== ENCOUNTER → 2025-06-22 14:25 | Outpatient (BNVA) | payer OTHER, SELFPAY | PROVIDERS: PCP Internal Medicine; Visit Provider Student in an Organized Health Care Education/Training Program | DX: M45.6 Ankylosing spondylitis lumbar region (principal); M65.331 Trigger finger, right middle finger; Z79.899 Other long term (current) drug therapy | CPT/HCPCS: 99212 ==